=== PATIENT | male | born 1980 | race Caucasian/White ===

== ENCOUNTER 2017-02-17 12:58 | Inpatient (IN) | payer OTHER ==
--- NOTE | ~2017-02-17 | PA ---
Unit #: [id number] #: [id number] Patient: WIN HIRSCH [id number] [facility] [address] [place] [address] [id number] I MR#: [id number] NAME: WIN HIRSCH. ROOM: [facility] Age: 36 Sex: M Admission Date: 02/17/2017 : 1980 Date of Assessment: Attending Physician: Rayshawn Kim M.D. Admitting Physician: Rayshawn Kim M.D. PSYCHIATRIC ASSESSMENT INFORMANTS The patient reliability, fair informant and chart reliability, good. CHIEF COMPLAINT Suicidal ideation. HISTORY OF PRESENT ILLNESS Win Hirsch is a 36-year-old male, seen on 02/17/2017, on . The patient presented with suicidal ideation with plan and intent. The patient reported feeling sad and depressed, also reported homeless, on probation, and intents to kill himself by stabbing himself. The patient also reported starting into withdrawals from heroin, used one pint yesterday. The patient denied any homicidal ideation. The patient reported history of hepatitis C. the patient reported tobacco use, age of onset 17; crack cocaine, age of onset 36; opioid, age of onset 36; and amphetamine, age of onset 36. The patient reported longest period of sobriety 2 years, last period of sobriety was in 10/2016. The patient reported history of blackout, history of hepatitis, withdrawal symptom, and history of IV drug use. Currently, reporting muscle cramping, irritability, restlessness, sleep problem, abdominal cramping, muscle cramping, irritability, and tremors. The patient needing inpatient admission at this time for psychiatric stabilization. PAST PSYCHIATRIC HISTORY Remarkable for history of inpatient treatment at [facility] mental health. No history of any suicide attempt or any inpatient treatment. FAMILY HISTORY AND SOCIAL HISTORY The patient currently homeless, poor support system. No history of any abuse. The patient reported legal charges, but no court date. Reported past charges of burglary in second-degree. MEDICAL HISTORY Remarkable for history of hepatitis C. Musculoskeletal; muscle strength and tone, no atrophy or abnormal movement. Gait normal. MEDICATION HISTORY The patient is on gabapentin 800 mg b.i.d., Risperdal 2 mg b.i.d., Cymbalta 60 mg daily, and Artane 2 mg b.i.d. ALLERGIES No known drug allergies. Unit #: [id number] #: [id number] Patient: WIN HIRSCH SUBSTANCE ABUSE HISTORY Please see above. REVIEW OF SYSTEMS HEENT: Eyes, clear. Ears, nose, mouth, and throat; clear. CARDIOVASCULAR: Unremarkable. RESPIRATORY: Unremarkable. GI: Unremarkable. : Unremarkable. SKIN: Unremarkable. LYMPH NODE: Unremarkable. NEUROLOGIC: Unremarkable. ENDOCRINE: Unremarkable. HEMATOLOGIC: Unremarkable. ALLERGIC/IMMUNOLOGIC: Unremarkable. MUSCULOSKELETAL: Muscle strength and tone, no atrophy or abnormal movement. Gait normal. MENTAL STATUS EXAMINATION CONSTITUTIONAL: Measurement of vital signs; temperature 97.9, pulse rate 75, respiratory rate 16, blood pressure 103/60, height 5 feet 11 inches, and weight 200 pounds. GENERAL APPEARANCE: The patient dressed casually. The patient did not show any facial deformity. MUSCULOSKELETAL: Please see above. PSYCHIATRIC EXAMINATION Description of speech, regular rate. Description of thought process, goal directed. Description of association, intact. Description of abnormal psychotic thinking; the patient denied any hallucinations or delusions, but mood lability and substance abuse. Denied any homicidal ideation, but suicidal ideation as mentioned above. Description of the patient's judgment: Concerning everyday activity, poor. Social situation, poor. Concerning psychiatric condition, poor. Complete mental status examination; oriented in time, place, and person. Recent and remote memory, fair. Attention span and concentration, fair. Language, able to name object and repeat phrases. Fund of knowledge, aware of current event and passive vocabulary intact. Mood and affect, sad and dysphoric. Insight and judgment were fair to slightly impaired. ASSETS AND LIABILITIES Assets, the patient is articulate and able to take care of his ADL. Liability, history of substance abuse and depression. ADMITTING DIAGNOSES Psychiatric: Mood disorder, not otherwise specified, F32.9; bipolar mood disorder, not otherwise specified; F31.89; and amphetamine use disorder, severe, F15.20. Secondary diagnosis: Deferred. Medical diagnosis: Hepatitis C. Stressors: Psychosocial stressors. PSYCHIATRIC PLAN AND TREATMENT GOAL AND DISCHARGE PLAN 1. Advised to admit the patient on the inpatient unit. Provide safe, Unit #: [id number] #: [id number] Patient: WIN HIRSCH supportive, and structured environment. 2. Ordered labs; CBC, CMP, UA, and UDS. 3. Advised to continue with current medication; Artane, Risperdal, Neurontin, and lithium. Plan to check lithium level. The patient to start on detox protocol and detox monitoring. SC1 precaution. 4. The patient to attend all the programing on the inpatient unit, group therapy, individual therapy, and medication management. TREATMENT GOAL To attain euthymic mood, gain insight into his problem, and learn coping skills. DISCHARGE PLAN Plan to stabilize the patient and consider followup in outpatient program. ESTIMATED LENGTH OF STAY 5 days. Dictated by... Rayshawn Kim M.D. IKE/porter TD: 02/18/2017 17:56 JOB #: [id number] PSYCHIATRIC ASSESSMENT Page 1 of 1 X Rayshawn Kim MD PSYCHIATRIC ASSESSMENT
--- NOTE | ~2017-02-17 | HP ---
Unit #: [id number] #: [id number] Patient: WIN HIRSCH [id number] [place] [address] [id number] I MR#: [id number] NAME: WIN HIRSCH. ROOM: [facility] Age: 36 Sex: M Admission Date: 02/17/2017 : 1980 Attending Physician: Rayshawn Kim M.D. Admitting Physician: Rayshawn Kim M.D. Primary Care Physician: Generic Doctor Not In System HISTORY AND PHYSICAL HISTORY OF PRESENT ILLNESS Win is a 36 year old admitted to [facility] because of his polysubstance abuse which includes IV heroin and meth. PAST MEDICAL HISTORY 1. Long history of poly-illicit substance abuse to include IV drugs. 2. Asthma. PAST SURGICAL HISTORY Nothing reported. ALLERGIES Sulfa. SOCIAL HISTORY Smokes 1 pack per day. Denies alcohol but admits to a long history of poly-illicit substance abuse to include IV drugs. FAMILY HISTORY Medically noncontributory. REVIEW OF SYSTEMS CONSTITUTIONAL: No fever or chills. HEENT: Denies any sore throat, ear pain or runny nose. CARDIOVASCULAR: Denies chest pain, irregular heart rhythm or palpitations. CHEST: Denies shortness of breath or cough. No hemoptysis. GASTROINTESTINAL: Denies nausea, vomiting, diarrhea or chronic constipation. ENDOCRINE: Denies history of increased thirst or urination. No recent significant weight loss or gain. GENITOURINARY: Denies dysuria, frequency, or hematuria. SKIN: Denies any rashes. HEMATOLOGIC: Denies history of increased bleeding or bruising. MUSCULOSKELETAL: Denies any hot, swollen joints. No generalized muscle pain. NEUROLOGIC: Denies problems with vision or speech. No frequent, severe headaches. No numbness, tingling or weakness in any extremities. Denies loss of bladder or bowel control. CURRENT MEDICATIONS 1. Detox protocol. 2. Artane 2 mg b.i.d. 3. Risperdal 1 mg b.i.d. Unit #: [id number] #: [id number] Patient: WIN HIRSCH 4. Neurontin 800 mg b.i.d. 5. Borger 300 mg b.i.d. PHYSICAL EXAMINATION GENERAL: Alert, well-nourished, in no apparent distress. VITAL SIGNS: Blood pressure 115/56, heart rate 84, respirations 16, temperature 98.6. WEIGHT: 200. HEIGHT: 5 feet 11 inches. SKIN: Warm and dry without rash or lesion. HEENT: Normocephalic. TMs not viewed. Oral and nasal passages clear. Conjunctivae clear. PERRLA. EOMs intact. NECK: Supple without lymphadenopathy or thyromegaly. HEART: Regular rate and rhythm without murmur. LUNGS: Clear. ABDOMEN: Soft, nontender. : Not done. EXTREMITIES: No evidence of cyanosis, clubbing or edema. Moves all without focal deficit. NEUROLOGICAL: Grossly within normal limits. Cranial Nerves: II: Visual jones are intact. III, IV AND : Extraocular movements are intact. Pupils are equal, round and reactive to light. V: Facial sensation is grossly normal. VII: Facial movements and expression are normal. VIII: Auditory acuity grossly intact. IX, X: Uvula is midline. Phonation is normal. XI: Patient shrugs shoulders and turns head normally. XII: Tongue protrudes in the midline. Sensory and Motor Function: Sensory and motor sensation is grossly normal. Motor: moves all extremities well. Coordination: Gait is normal. Deep Tendon Reflexes: Intact. IMPRESSION Psychiatric admission. RECOMMENDATIONS PSYCHIATRIC: Per psychiatrist. MEDICAL: 1. See no contraindications to participate in facility's activities. 2. Will add Albuterol inhaler 2 puffs q. 4 hours p.r.n. SOB. MEDICAL PROGNOSIS Good. MEDICAL CONDITION Stable. Dictated by... Kayla Acosta P.A.-C. for Woo Lama/kerline TD: 02/17/2017 17:49 JOB #: [id number] Unit #: [id number] #: [id number] Patient: WIN HIRSCH HISTORY AND PHYSICAL Page 1 of 1 X Kayla Acosta HISTORY AND PHYSICAL
--- NOTE | ~2017-02-17 | PN ---
Unit #: [id number] #: [id number] Patient: WIN HIRSCH [id number] [facility] [address] [place] [address] [id number] I MR#: [id number] NAME: WIN HIRSCH. ROOM: [facility] Age: 36 Sex: M Admission Date: 02/17/2017 : 1980 Attending Physician: Rayshawn Kim M.D. Admitting Physician: Rayshawn Kim M.D. Primary Care Physician: Generic Doctor Not In System [facility] PROGRESS NOTES DATE OF SERVICE 02/21/2017 DISCUSSION Win Hirsch is a 36-year-old male seen on 02/21/2017. The patient interviewed, chart reviewed. Obtained information from nursing staff. The patient was compliant, cooperative. Mood sad, dysphoric, flat affect. Able to maintain safe behavior. The patient seclusive, isolative. Complete Review of Systems: Unremarkable. MENTAL STATUS EXAMINATION General Appearance: The patient dressed casually. Attention span, concentration: Fair. Oriented in place and person. Mood and affect labile. Speech: Monotone. Thought process: Helix. The patient denied any thoughts of harming self or others or any psychotic symptom. Recent and remote memory: Poor. Insight and judgment: Poor. DIAGNOSIS Mood disorder not otherwise specified. ASSESSMENT/PLAN Advised to continue with current medication and therapeutic protocol. We will monitor response to medication and make further adjustment of medication. Dictated by... Rayshawn Kim M.D. SZGypsy/mira TD: 02/23/2017 13:27 JOB #: [id number] Unit #: [id number] #: [id number] Patient: WIN HIRSCH [facility] PROGRESS NOTES Page 1 of 1 X Rayshawn Kim MD X PROGRESS NOTE
--- NOTE | ~2017-02-17 | PN ---
Unit #: [id number] #: [id number] Patient: WIN HIRSCH [id number] [facility] [address] [place] [address] [id number] I MR#: [id number] NAME: WIN HIRSCH. ROOM: [facility] Age: 36 Sex: M Admission Date: 02/17/2017 : 1980 Attending Physician: Rayshawn Kim M.D. Admitting Physician: Rayshawn Kim M.D. Primary Care Physician: Generic Doctor Not In System [facility] PROGRESS NOTES DATE 02/18/2017 DISCUSSION Win Hirsch is a 36-year-old, male seen on 02/18/2017. The patient interviewed, chart reviewed. Obtained information from nursing staff. The patient was compliant and cooperative. Mood sad, dysphoric, flat affect, withdrawn, isolative. The patient's labs reviewed that showed RPR nonreactive. Urine drug screen negative. UA unremarkable. CMP remarkable for ALT 61, Alkaline phosphatase was 106. The patient's thyroid function within normal range. CHIEF OF INTERNAL MEDICINE with differential unremarkable. Complete review of systems unremarkable. MENTAL STATUS EXAMINATION General appearance, the patient dressed casually. Attention span and concentration fair. Oriented to place and person. Mood and affect labile. Speech monotone. Thought process circumstantial. The patient denied any thoughts of harming self or others but guarded. Able to contract for safety. Still withdrawn. Sad, dysphoric, seclusive. Recent and remote memory poor. Insight and judgement poor. The patient still having withdrawal symptoms as mentioned above. ASSESSMENT/PLAN Advise to continue with current medication and therapeutic protocol. If needed consider further adjustment of medication. Dictated by... Woo Prieto/shani TD: 02/19/2017 21:54 JOB #: [id number] Unit #: [id number] #: [id number] Patient: WIN HIRSCH PROGRESS NOTES Page 1 of 1 X Rayshawn Kim MD PROGRESS NOTE
--- NOTE | ~2017-02-17 | PN ---
Unit #: [id number] #: [id number] Patient: WIN HIRSCH [id number] [facility] [address] [place] [address] [id number] I MR#: [id number] NAME: WIN HIRSCH. ROOM: [facility] Age: 36 Sex: M Admission Date: 02/17/2017 : 1980 Attending Physician: Rayshawn Kim M.D. Admitting Physician: Woo Prieto PROGRESS NOTES DATE OF SERVICE: 02/19/2017 DISCUSSION Win Hirsch is a 36-year-old male, seen on 02/19/2017. The patient interviewed, chart reviewed, and obtained information from nursing staff. The patient reported still feeling sad, depressed, withdrawn, isolative, suicidal ideation. Vital signs; temperature 98.4, pulse 70, and blood pressure 103/50. Complete review of systems unremarkable. MENTAL STATUS EXAMINATION General appearance, the patient dressed casually. Attention span and concentration, fair. Oriented in place and person. Mood and affect; sad, depressed. Speech, monotone. Thought process, goal directed. The patient denied any thoughts of harming self or others or any psychotic symptom. Recent and remote memory, poor. Insight and judgment, poor. DIAGNOSES 1. Mood disorder, not otherwise specified. 2. Rule out bipolar mood disorder. 3. Amphetamine use disorder, severe. ASSESSMENT AND PLAN Advised to start the patient on Celexa 20 mg daily. If needed, consider further adjustment of medication. Continue with the inpatient programing. Dictated by... Woo Prieto/porter TD: 02/19/2017 13:51 JOB #: [id number] Unit #: [id number] #: [id number] Patient: WIN HIRSCH PROGRESS NOTES Page 1 of 1 X Rayshawn Kim MD X PROGRESS NOTE
--- NOTE | ~2017-02-17 | DS ---
Unit #: [id number] #: [id number] Patient: WIN HIRSCH [id number] [facility] [address] [place] [address] [id number] I MR#: [id number] NAME: WIN HIRSCH. ROOM: [facility] Age: 36 Sex: M Admission Date: 02/17/2017 : 1980 Discharge Date: 02/22/2017 Attending Physician: Rayshawn Kim M.D. Primary Care Physician: Generic Doctor Not In System DISCHARGE SUMMARY REASON FOR ADMISSION Suicidal ideation. DIAGNOSTIC STUDIES LABORATORY RESULTS: Unremarkable. HOSPITAL COURSE The patient was admitted to inpatient unit on 02/17/2017 and discharged on 02/22/2017. The patient was treated on the inpatient unit with group therapy, individual therapy, medication management, chemical dependency group. The patient responded well with the above modalities of treatment. Subsequently, the patient was discharged with a plan to follow up in outpatient program. DISCHARGE MEDICATIONS Neurontin 800 mg t.i.d. for mood stabilization, Artane 2 mg b.i.d. for EPS symptom, Risperdal 1 mg b.i.d. for psychosis, lithium carbonate 300 mg b.i.d. for mood stabilization. DISCHARGE DIAGNOSES Psychiatric: 1. Bipolar mood disorder, not otherwise specified, F31.89. 2. Amphetamine use disorder, severe, F15.20. Secondary diagnosis: Deferred. Medical diagnosis: Hepatitis C. Stressors: Psychosocial stressor. DISCHARGE INSTRUCTIONS The patient to follow up in outpatient clinic as per perinatal social worker. CONDITION ON DISCHARGE The patient was pleasant and cooperative. Denied any psychotic symptom or any suicidal ideation. PROGNOSIS Guarded. DIET AND ACTIVITY As tolerated. Unit #: [id number] #: [id number] Patient: WIN HIRSCH Dictated by... Rayshawn Kim M.D. SZC/ronniel TD: 02/23/2017 08:11 JOB #: [id number] DISCHARGE SUMMARY Page 1 of 1 X Rayshawn Kim MD X DISCHARGE SUMMARY
--- NOTE | ~2017-02-17 | CO ---
Unit #: [id number] #: [id number] Patient: WIN HIRSCH [id number] [facility] [address] [place] [address] [id number] I MR#: [id number] NAME: WIN HIRSCH. ROOM: [facility] Age: 36 Sex: M Admission Date: 02/17/2017 : 1980 Attending Physician: Rayshawn Kim M.D. Primary Care Physician: Generic Doctor Not In System Consultation Date: 02/20/2017 CONSULTATION REPORT ORDERING PROVIDER Dr. Kim. REASON FOR CONSULTATION Back pain. SUBJECTIVE The patient reports that he has had lower back pain, pain with urination, and difficulty urinating for about 2 days. He also complains of allergies and would like medication for it. OBJECTIVE Urinalysis from 02/17/2017 is normal, however, symptoms started after the urinalysis was drawn according to the patient. His examination at this time is unremarkable. ASSESSMENT Possible urinary tract infection. PLAN Plan is to get urinalysis and start the patient on allergy medicines as requested. We will follow up after urinalysis results. Dictated by... Ruth Hairston/porter TD: 02/20/2017 20:50 JOB #: [id number] CONSULTATION REPORT Page 1 of 1 X MARGO SAUCEDO APRN CONSULTATION REPORT
--- NOTE | ~2017-02-17 | PN ---
Unit #: [id number] #: [id number] Patient: WIN HIRSCH [id number] [facility] [address] [place] [address] [id number] I MR#: [id number] NAME: WIN HIRSCH. ROOM: [facility] Age: 36 Sex: M Admission Date: 02/17/2017 : 1980 Attending Physician: Rayshawn Kim M.D. Admitting Physician: Rayshawn Kim M.D. Primary Care Physician: Generic Doctor Not In System [facility] PROGRESS NOTES DATE OF SERVICE: 02/20/2017 DISCUSSION Win Hirsch is a 36-year-old male, seen on 02/20/2017. The patient interviewed, chart reviewed, and obtained information from nursing staff. The patient was compliant and cooperative, denied any thoughts of harming self or others, but seclusive, isolative, guarded. The patient's vital signs; temperature 98.4, pulse 60, and blood pressure 99/57. The patient continues to be isolative, guarded. No side effects from medication. Complete review of systems unremarkable. MENTAL STATUS EXAMINATION General appearance, the patient dressed casually. Attention span and concentration, fair. Oriented in place and person. Mood and affect, sad and dysphoric. Speech, monotone. Thought process, concrete. The patient denied any thoughts of harming self or others or any psychotic symptom. Recent and remote memory, poor. Insight and judgment, poor. DIAGNOSES 1. Mood disorder, not otherwise specified. 2. Amphetamine use disorder, severe. 3. Opioid use disorder, severe. ASSESSMENT AND PLAN Advised to continue with current medication and therapeutic protocol. We will monitor response to medication and make further adjustment of medication. Dictated by... Woo Prieto/porter TD: 02/21/2017 20:25 JOB #: [id number] Unit #: [id number] #: [id number] Patient: WIN HIRSCH PROGRESS NOTES Page 1 of 1 X Rayshawn Kim MD PROGRESS NOTE
[2017-02-18 09:28] LABS: BASOPHIL# 0.1 X10e3 (0-0.3); BASOPHIL% 0.9 % (0-2.5); EOSINOPHIL# 0.2 X10e3 (0-0.7); EOSINOPHIL% 2.7 % (0.0-7.0); HEMATOCRIT 42.9 % (38.0-50.0); HEMOGLOBIN 14.1 gm/dL (13.0-16.0); LYMPHOCYTE# 2.1 X10e3 (1.0-3.5); LYMPHOCYTE% 34.5 % (17.0-45.0); MEAN CELL VOLUME 93.5 FL (83-96); MEAN CORPUSCULAR HEMOGLOBIN 30.8 PG (28-34); MEAN CORPUSCULAR HGB CONC 32.9 g/dL (30-36); MEAN PLATELET VOLUME 8.1 FL (6.5-11.5); MONOCYTE# 0.6 X10e3 (0-1.0); MONOCYTE% 9.3 % (3.0-12.0); NEUTROPHIL# 3.1 X10e3 (1.5-7.1); NEUTROPHIL% 52.6 % (40-75); PLATELET COUNT 238 X10e3 (140-420); RED BLOOD COUNT 4.58 X10e (3.90-5.60); RED CELL DISTRIBUTION WIDTH 14.2 % (11.0-15.5); WHITE BLOOD COUNT 5.9 X10e3 (4.0-10.5)
[2017-02-18 09:31] LABS: DIFF IND NO
[2017-02-18 09:44] LABS: URINE APPEARANCE TURBID; URINE BILIRUBIN NEG (NEG); URINE BLOOD NEG (NEG); URINE COLOR DK YELLOW; URINE GLUCOSE NEG (NEG); URINE KETONE NEG (NEG); URINE LEUKOCYTE ESTERASE NEG (NEG); URINE NITRATE NEG (NEG); URINE PH 5.5 (5-8); URINE PROTEIN NEG (NEG); URINE SPECIFIC GRAVITY 1.033 (1.003-1.035)
[2017-02-18 09:47] LABS: THYROID STIMULATING HORMONE 0.59 uIU/ml (0.34-5.60)
[2017-02-18 09:56] LABS: ALBUMIN SERUM 3.6 g/dL (3.5-5.0); BILIRUBIN,TOTAL 1.3 mg/dL (0.2-2.0); CALCIUM SERUM 8.7 mg/dL (8.4-10.2); CREATININE SERUM 0.7 mg/dL (0.6-1.4); FREE THYROXIN (T4) 1.1 ng/dL (0.58-1.64); GLOM FILT RATE Estimated 123.2 mL/min (>60); POTASSIUM 4.2 mmol/L (3.5-5.1); PROTEIN TOTAL SERUM 5.9 g/dL (6.0-8.3)
[2017-02-18 10:40] LABS: AMPHETAMINE NEG (NEG); BARBITURATES NEG (NEG); BENZODIAZEPINES NEG (NEG); COCAINE NEG (NEG); MARIJUANA NEG (NEG); OPIATES NEG (NEG); TRICYCLIC ANTIDEPRESSANTS NEG (NEG); U METHADONE NEG (NEG)
[2017-02-21 12:24] LABS: URINE APPEARANCE CLEAR; URINE BILIRUBIN NEG (NEG); URINE BLOOD NEG (NEG); URINE COLOR YELLOW; URINE GLUCOSE NEG (NEG); URINE KETONE NEG (NEG); URINE LEUKOCYTE ESTERASE NEG (NEG); URINE NITRATE NEG (NEG); URINE PH 6.5 (5-8); URINE PROTEIN NEG (NEG); URINE UROBILINOGEN 0.2 MG/DL (NEG)
== END 2017-02-22 10:00 | DRG 885 ==
LOC: P1E 12:58
PROVIDERS: Psychiatry & Neurology Psychiatry
DX: F39 Unspecified mood [affective] disorder (principal); F15.20 Other stimulant dependence, uncomplicated; N39.0 Urinary tract infection, site not specified; F31.89 Other bipolar disorder; B19.20 Unspecified viral hepatitis C without hepatic coma; J45.909 Unspecified asthma, uncomplicated; Z88.2 Allergy status to sulfonamides
CPT/HCPCS: 80053; 80307; 81003; 84439; 84443; 85025; 86592

== ENCOUNTER 2017-03-01 12:52 | Inpatient (IN) | payer OTHER ==
--- NOTE | ~2017-03-01 | PN ---
Unit #: [id number] #: [id number] Patient: WIN HIRSCH [id number] [facility] [address] [place] [address] [id number] I MR#: [id number] NAME: WIN HIRSCH. ROOM: [facility] Age: 36 Sex: M Admission Date: 03/01/2017 : 1980 Attending Physician: Rayshawn Kim M.D. Admitting Physician: Woo Prieto PROGRESS NOTES DATE 03/02/2017 DISCUSSION Win Hirsch is a 36-year-old male seen on 03/02/2017. The patient interviewed, chart reviewed. Obtained information from nursing staff. The patient was compliant and cooperative. Mood sad, dysphoric, flat affect, guarded. The patient still reporting having cravings, mood lability, sad depressed mood, flat affect. Vital signs 97.5, 110, 117/76. Complete review of systems unremarkable. MENTAL STATUS EXAMINATION General appearance, the patient dressed casually. Attention span and concentration fair. Oriented to place and person. Mood and affect sad, dysphoric. Speech monotone. Thought process concrete. The patient still having passive SI but denied any thoughts of harming others, guarded, paranoid, flat affect. Mood sad, dysphoric. insight and judgement fair to poor. DIAGNOSES Mood disorder NOS Bipolar mood disorder NOS Amphetamine abuse ASSESSMENT/PLAN Advise to continue with current medication and therapeutic protocol. We will monitor response to medication and make further adjustment of medication. Dictated by... Woo Prieto/shani TD: 03/03/2017 03:15 JOB #: [id number] Unit #: [id number] #: [id number] Patient: WIN HIRSCH PROGRESS NOTES Page 1 of 1 X Rayshawn Kim MD PROGRESS NOTE
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
--- NOTE | ~2017-03-01 | DS ---
Unit #: [id number] #: [id number] Patient: WIN HIRSCH [id number] [facility] [address] [place] [address] [id number] I MR#: [id number] NAME: WIN HIRSCH. ROOM: [facility] Age: 36 Sex: M Admission Date: 03/01/2017 : 1980 Discharge Date: 03/03/2017 Attending Physician: Rayshawn Kim M.D. DISCHARGE SUMMARY REASON FOR ADMISSION Suicidal ideation and detox. DIAGNOSTIC STUDIES LABORATORY RESULTS: Urine drug screen positive for benzodiazepines. HOSPITAL COURSE The patient was admitted to inpatient unit on 03/01/2017 and discharged on 03/03/2017. The patient was treated with chemical dependency group, structured milieu, psychoeducation, and psychotherapy. The patient responded well with the above modalities of treatment and the patient requested to be discharged. The patient at this time is not suicidal, homicidal, or any psychotic symptom. Subsequently, the patient was discharged with a plan to follow up in outpatient program. DISCHARGE MEDICATIONS Artane 2 mg b.i.d. for EPS symptom, Risperdal 1 mg b.i.d. for mood stabilization, Claritin 10 mg daily for allergies, Celexa 20 mg daily for mood stabilization, and Neurontin 800 mg t.i.d. for anxiety. DISCHARGE DIAGNOSES Psychiatric: 1. Mood disorder, not otherwise specified, F32.9. 2. Bipolar mood disorder, not otherwise specified, F31.89. 3. Amphetamine use disorder, severe, F15.20. Secondary diagnosis: Deferred. Medical diagnosis: Hepatitis C. Stressors: Psychosocial stressors. DISCHARGE INSTRUCTIONS The patient is to follow up in outpatient program as per rn social services. CONDITION ON DISCHARGE The patient was pleasant and cooperative. Denied any psychotic symptom or any suicidal ideation. PROGNOSIS Guarded. DIET AND ACTIVITY As tolerated. Unit #: [id number] #: [id number] Patient: WIN HIRSCH Dictated by... Rayshawn Kim M.D. SZC/ronniel TD: 03/03/2017 21:05 JOB #: [id number] DISCHARGE SUMMARY Page 1 of 1 X Rayshawn Kim MD DISCHARGE SUMMARY
--- NOTE | ~2017-03-01 | HP ---
Unit #: [id number] #: [id number] Patient: WIN HIRSCH [id number] [facility] [address] [place] [address] [id number] I MR#: [id number] NAME: WIN HIRSCH. ROOM: P208 Age: 36 Sex: M Admission Date: 03/01/2017 : 1980 Attending Physician: Rayshawn Kim M.D. Admitting Physician: Rayshawn Kim M.D. HISTORY AND PHYSICAL Win is a 36 year old admitted to [address] [place] [address] because of his continued substance abuse. He was just discharged from this facility. Patient was seen and H and P dated 02/17/17 was reviewed. This is current. No changes. Please see H and P dated 02/17/17. Dictated by... Kayla Acosta P.A.-C. for Woo Lama/kerline TD: 03/01/2017 19:39 JOB #: [id number] HISTORY AND PHYSICAL Page 1 of 1 X Kayla Acosta HISTORY AND PHYSICAL
[2017-03-02 09:36] LABS: BASOPHIL% 0.7 % (0-2.5); EOSINOPHIL# 0.3 X10e3 (0-0.7); EOSINOPHIL% 4.2 % (0.0-7.0); HEMATOCRIT 45.4 % (38.0-50.0); HEMOGLOBIN 15.1 gm/dL (13.0-16.0); LYMPHOCYTE# 1.8 X10e3 (1.0-3.5); LYMPHOCYTE% 26.9 % (17.0-45.0); MEAN CELL VOLUME 92.8 FL (83-96); MEAN CORPUSCULAR HEMOGLOBIN 30.8 PG (28-34); MEAN CORPUSCULAR HGB CONC 33.2 g/dL (30-36); MEAN PLATELET VOLUME 7.9 FL (6.5-11.5); MONOCYTE# 0.7 X10e3 (0-1.0); MONOCYTE% 9.7 % (3.0-12.0); NEUTROPHIL% 58.5 % (40-75); PLATELET COUNT 226 X10e3 (140-420); RED BLOOD COUNT 4.89 X10e (3.90-5.60); RED CELL DISTRIBUTION WIDTH 14.4 % (11.0-15.5); WHITE BLOOD COUNT 6.9 X10e3 (4.0-10.5)
[2017-03-02 09:37] LABS: DIFF IND NO
[2017-03-02 10:16] LABS: ALBUMIN SERUM 3.4 g/dL (3.5-5.0); BILIRUBIN,TOTAL 0.8 mg/dL (0.2-2.0); BUN/CREATININE RATIO 21.66; CALCIUM SERUM 8.9 mg/dL (8.4-10.2); CREATININE SERUM 0.6 mg/dL (0.6-1.4); GLOM FILT RATE Estimated 131.2 mL/min (>60); POTASSIUM 4.5 mmol/L (3.5-5.1); PROTEIN TOTAL SERUM 6.1 g/dL (6.0-8.3)
[2017-03-03 09:51] LABS: URINE APPEARANCE CLEAR; URINE BILIRUBIN NEG (NEG); URINE BLOOD NEG (NEG); URINE COLOR DK YELLOW; URINE GLUCOSE NEG (NEG); URINE KETONE NEG (NEG); URINE LEUKOCYTE ESTERASE NEG (NEG); URINE NITRATE NEG (NEG); URINE PH 6.5 (5-8); URINE PROTEIN NEG (NEG); URINE SPECIFIC GRAVITY 1.012 (1.003-1.035); URINE UROBILINOGEN 0.2 MG/DL (NEG)
[2017-03-03 10:16] LABS: AMPHETAMINE NEG (NEG); BARBITURATES NEG (NEG); BENZODIAZEPINES POS (NEG); COCAINE NEG (NEG); MARIJUANA NEG (NEG); OPIATES NEG (NEG); TRICYCLIC ANTIDEPRESSANTS NEG (NEG); U METHADONE NEG (NEG)
== END 2017-03-03 10:23 | DRG 885 ==
LOC: P2S 12:52
PROVIDERS: Psychiatry & Neurology Psychiatry
DX: F31.9 Bipolar disorder, unspecified (principal); F15.20 Other stimulant dependence, uncomplicated; R45.851 Suicidal ideations; B19.20 Unspecified viral hepatitis C without hepatic coma; F39 Unspecified mood [affective] disorder
CPT/HCPCS: 80053; 80307; 81003; 85025; 86592

== ENCOUNTER 2017-04-22 10:00 | Inpatient (IN) | payer OTHER ==
--- NOTE | ~2017-04-22 | HP ---
Unit #: [id number] #: [id number] Patient: WIN HIRSCH [id number] [place] [address] [id number] I MR#: [id number] NAME: WIN HIRSCH. ROOM: [facility] Age: 36 Sex: M Admission Date: 04/22/2017 : 1980 Attending Physician: Rayshawn Kim M.D. Admitting Physician: Rayshawn Kim M.D. HISTORY AND PHYSICAL HISTORY OF PRESENT ILLNESS Win is a 36-year-old male admitted on 04/22/[address] [place] [address] for detox from heroin. PAST MEDICAL HISTORY Lymphedema and exposure to hepatitis C. PAST SURGICAL HISTORY Right knee surgical repair of meniscus tear. SOCIAL HISTORY Smokes half pack of cigarettes daily. Occasional binge alcohol use. History of daily heroin and methamphetamine use. He is currently single and homeless. FAMILY HISTORY Noncontributory. REVIEW OF SYSTEMS CONSTITUTIONAL: No fever or chills. HEENT: Denies any sore throat, ear pain or runny nose. CARDIOVASCULAR: Denies chest pain, irregular heart rhythm or palpitations. CHEST: Denies shortness of breath or cough. No hemoptysis. GASTROINTESTINAL: Denies nausea, vomiting, diarrhea or chronic constipation. ENDOCRINE: Denies history of increased thirst or urination. No recent significant weight loss or gain. GENITOURINARY: Denies dysuria, frequency, or hematuria. SKIN: Denies any rashes. HEMATOLOGIC: Denies history of increased bleeding or bruising. MUSCULOSKELETAL: Denies any hot, swollen joints. No generalized muscle pain. NEUROLOGIC: Denies problems with vision or speech. No frequent, severe headaches. No numbness, tingling or weakness in any extremities. Denies loss of bladder or bowel control. CURRENT MEDICATIONS Artane, Risperdal, lithium, Celexa, Zyrtec, Flonase, Combivent, Asmanex, Ventolin, and Neurontin. ALLERGIES To sulfa drugs. PHYSICAL EXAMINATION Unit #: [id number] #: [id number] Patient: WIN HIRSCH GENERAL: Alert, oriented, no acute distress. VITAL SIGNS: Blood pressure 103/67, heart rate 83, temperature 97.9. HEIGHT: 5 feet 9. WEIGHT: 200 pounds. SKIN: Warm, dry. No rashes or lesions, track avila, cuts, etc. HEENT: Normocephalic. TMs not viewed. Oronasal passages clear. Conjunctivae clear. PERRLA. EOM is intact. NECK: No lymphadenopathy or thyromegaly. HEART: Regular rate and rhythm. No murmur, gallop, or rub. LUNGS: Clear to auscultation bilaterally. ABDOMEN: Soft, nontender without palpable masses or hepatosplenomegaly. : Not assessed. EXTREMITIES: No evidence of cyanosis, clubbing, or edema. Moves all extremities independently without obvious deficit. NEUROLOGICAL: Grossly within normal limits. Cranial Nerves: II: Visual jones are intact. III, IV AND : Extraocular movements are intact. Pupils are equal, round and reactive to light. V: Facial sensation is grossly normal. VII: Facial movements and expression are normal. VIII: Auditory acuity grossly intact. IX, X: Uvula is midline. Phonation is normal. XI: Patient shrugs shoulders and turns head normally. XII: Tongue protrudes in the midline. Sensory and Motor Function: Sensory and motor sensation is grossly normal. Motor: moves all extremities well. Coordination: Gait is normal. Deep Tendon Reflexes: Intact. IMPRESSION Psychiatric admission. RECOMMENDATIONS PSYCHIATRIC: Per psychiatrist. MEDICAL: No contraindication to participating in this facility's activities. MEDICAL PROGNOSIS Good. MEDICAL CONDITION Stable. Dictated by..Ruth Dubois TD: 04/23/2017 11:30 JOB #: [id number] Unit #: [id number] #: [id number] Patient: WIN HIRSCH HISTORY AND PHYSICAL Page 1 of 1 X RUKHSANA MONTEIRO APRN HISTORY AND PHYSICAL
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
--- NOTE | ~2017-04-22 | PN ---
Unit #: [id number] #: [id number] Patient: WIN HIRSCH [id number] [facility] [address] [place] [address] [id number] I MR#: [id number] NAME: WIN HIRSCH. ROOM: [facility] Age: 36 Sex: M Admission Date: 04/22/2017 : 1980 Attending Physician: Rayshawn Kim M.D. Admitting Physician: Woo Prieto NOTES DATE 04/25/2017 DISCUSSION Win Hirsch is a 36-year-old male seen on 04/25/2017. The patient interviewed, chart reviewed. Obtained information from nursing staff. The patient compliant and cooperative. Mood labile, sad, dysphoric anxious concern about discharge. Complete review of systems unremarkable. MENTAL STATUS EXAMINATION General appearance, the patient dressed casually. Attention span and concentration fair. Oriented to time, place and person. Mood and affect labile. Speech monotone. Thought process concrete. The patient denied any thoughts of harming self or others but guarded. Recent and remote memory poor. Insight and judgement poor. DIAGNOSES Mood disorder NOS Alcohol use disorder severe ASSESSMENT/PLAN Advise to continue with current medication and therapeutic protocol. If needed consider further adjustment of medication. Dictated by... Woo Prieto/shani TD: 04/26/2017 23:48 JOB #: [id number] [facility] NOTES Page 1 of 1 X Rayshawn Kim MD X PROGRESS NOTE
--- NOTE | ~2017-04-22 | PN ---
Unit #: [id number] #: [id number] Patient: WIN HIRSCH [id number] [facility] [address] [place] [address] [id number] I MR#: [id number] NAME: WIN HIRSCH. ROOM: [facility] Age: 36 Sex: M Admission Date: 04/22/2017 : 1980 Attending Physician: Rayshawn Kim M.D. Admitting Physician: Woo Prieto PROGRESS NOTES DATE 04/24/2017 DISCUSSION Win Hirsch is a 36-year-old male seen on 04/24/2017. The patient interviewed, chart reviewed. Obtained information from nursing staff. The patient tolerating medication fairly well. Mood sad, dysphoric, flat affect, guarded. Vital signs 98.4, 76, 108/64. The patient still reporting feeling sad, depressed, withdrawn. Complete review of systems unremarkable. MENTAL STATUS EXAMINATION General appearance, the patient dressed casually. Attention span and concentration fair. Oriented to time, place and person. Mood and affect sad, dysphoric. Speech monotone. Thought process concrete. The patient denied any thoughts of harming self or others. Recent and remote memory poor. Insight and judgement poor. DIAGNOSES Major depressive disorder recurrent severe Alcohol use disorder severe ASSESSMENT/PLAN Advise to continue with current medication and therapeutic protocol. If needed consider further adjustment of medication. Dictated by... Woo Prieto/shani TD: 04/25/2017 12:49 JOB #: [id number] Unit #: [id number] #: [id number] Patient: WIN HIRSCH PROGRESS NOTES Page 1 of 1 X Rayshawn Kim MD PROGRESS NOTE
--- NOTE | ~2017-04-22 | PN ---
Unit #: [id number] #: [id number] Patient: WIN HIRSCH [id number] [facility] [address] [place] [address] [id number] I MR#: [id number] NAME: WIN HIRSCH. ROOM: [facility] Age: 36 Sex: M Admission Date: 04/22/2017 : 1980 Attending Physician: Rayshawn Kim M.D. Admitting Physician: Woo Prieto PROGRESS NOTES DATE OF SERVICE: 04/23/2017 DISCUSSION Win Hirsch is a 36-year-old male, seen on 04/23/2017. The patient interviewed, chart reviewed, and obtained information from nursing staff. The patient is compliant, cooperative. Mood is sad and dysphoric, flat affect, guarded. Maintained safe behavior. Withdrawn, isolative, flat. REVIEW OF SYSTEMS Complete review of systems unremarkable. MENTAL STATUS EXAMINATION General appearance, the patient dressed casually. Attention span and concentration, fair. Oriented in time, place, and person. Mood and affect, sad and dysphoric. Speech, monotone. Thought process, concrete. The patient denied any thoughts of harming self or others. Recent and remote memory, poor. Insight and judgment, poor. DIAGNOSES 1. Mood disorder, not otherwise specified. 2. Alcohol use disorder, moderate to severe. ASSESSMENT AND PLAN Advised to continue with current medication and therapeutic protocol. If needed, consider further adjustment of medication. Dictated by... Woo Prieto/porter TD: 04/24/2017 18:53 JOB #: [id number] Unit #: [id number] #: [id number] Patient: WIN HIRSCHDEANDRE PROGRESS NOTES Page 1 of 1 X Rayshawn Kim MD PROGRESS NOTE
--- NOTE | ~2017-04-22 | DS ---
Unit #: [id number] #: [id number] Patient: WIN HIRSCH [id number] [place] [address] [id number] I MR#: [id number] NAME: WIN HIRSCH. ROOM: [facility] Age: 36 Sex: M Admission Date: 04/22/2017 : 1980 Discharge Date: 04/26/2017 Attending Physician: Rayshawn Kim M.D. DISCHARGE SUMMARY REASON FOR ADMISSION Suicidal ideation, detox. DIAGNOSTIC STUDIES LABORATORY RESULTS: Remarkable for BUN 7, creatinine 0.5. HOSPITAL COURSE The patient was admitted to inpatient unit on 04/22/2017 and discharged on 04/26/2017. The patient was treated on the inpatient unit with group therapy, individual therapy, medication management, chemical dependency group. The patient responded well with the above modalities of treatment and discharged on following medication. DISCHARGE MEDICATIONS Risperdal 1 mg b.i.d. for mood stabilization, Celexa 20 mg daily for depression, Claritin 10 mg daily for allergies, Neurontin 800 mg t.i.d. for anxiety and mood stabilization, lithium carbonate 300 mg b.i.d. for mood stabilization, Artane 5 mg b.i.d. for EPS symptom, Librium 25 mg b.i.d. for anxiety and withdrawal symptoms for 5 days only. DISCHARGE DIAGNOSES Psychiatric: Major depressive disorder, recurrent, severe, F33.2; alcohol use disorder, severe, F10.20. Secondary diagnosis: Deferred. Medical diagnosis: None. Stressors: Psychosocial stressors. DISCHARGE INSTRUCTIONS The patient to follow up in outpatient clinic as per pediatric social worker. CONDITION ON DISCHARGE The patient was pleasant and cooperative. Denied any psychotic symptom or any suicidal ideation. PROGNOSIS Guarded. DIET AND ACTIVITY As tolerated. Unit #: [id number] #: [id number] Patient: WIN HIRSCH Dictated by... Woo Prieto/ronniel TD: 04/26/2017 22:46 JOB #: [id number] DISCHARGE SUMMARY Page 1 of 1 X Rayshawn Kim MD X DISCHARGE SUMMARY
--- NOTE | ~2017-04-22 | PA ---
Unit #: [id number] #: [id number] Patient: WIN HIRSCH [id number] [facility] [address] [place] [address] [id number] I MR#: [id number] NAME: WIN HIRSCH. ROOM: [facility] Age: 36 Sex: M Admission Date: 04/22/2017 : 1980 Date of Assessment: Attending Physician: Rayshawn Kim M.D. Admitting Physician: Rayshawn Kim M.D. PSYCHIATRIC ASSESSMENT INFORMANT The patient reliability, fair; chart reliability, good. CHIEF COMPLAINT Suicidal ideation and detox. HISTORY OF PRESENT ILLNESS Mr. Win Hirsch is a 36-year-old male, presented with the above-mentioned complaint. The patient reported having suicidal thoughts of wanting a detox. The patient reported using meth about a gram in the last 2 weeks. The patient reported drinking about one-fifth of vodka every day. The patient reported shaking, hurting all over and difficulty sleep. The patient reported seizure 6 months ago. The patient reported currently homeless. The patient denied any homicidal ideation or any psychotic symptom. The patient has a history of previous treatment at [facility], [facility], and [place], [place]. History of tobacco use, age of onset 17; alcohol, age of onset 17; crack cocaine, age of onset 36; opioid, age of onset 36; amphetamine, age of onset 36. The patient reported history of IV drug use, history of hepatitis, blackouts, history of withdrawal symptom, abdominal cramping, muscle cramping, irritability, sleep problem, tremor, depressed moods, needing inpatient admission at this time for psychiatric stabilization. PAST PSYCHIATRIC HISTORY Remarkable for history of previous treatment. The inpatient treatment at [facility] and other facilities. Details unknown at this time. FAMILY HISTORY AND SOCIAL HISTORY The patient has a poor support system. No history of any abuse. MEDICAL HISTORY Unremarkable for any chronic medical condition. Musculoskeletal; muscle strength and tone, no atrophy or abnormal movement. Gait normal. MEDICATION HISTORY None. ALLERGIES No known drug allergies. SUBSTANCE ABUSE HISTORY Please see above. Unit #: [id number] #: [id number] Patient: WIN HIRSCH REVIEW OF SYSTEMS HEENT: Eyes, clear. Ears, nose, mouth, and throat; clear. CARDIOVASCULAR: Unremarkable. RESPIRATORY: Unremarkable. GI: Unremarkable. : Unremarkable. SKIN: Unremarkable. LYMPH NODE: Unremarkable. NEUROLOGIC: Unremarkable. ENDOCRINE: Unremarkable. HEMATOLOGIC: Unremarkable. ALLERGIC/IMMUNOLOGIC: Unremarkable. MUSCULOSKELETAL: Muscle strength and tone, no atrophy or abnormal movement. Gait normal except as mentioned above. MENTAL STATUS EXAMINATION CONSTITUTIONAL: Measurement of vital signs; temperature 98.1, pulse 76, respirations 17, and blood pressure 106/63, height 5 feet 9 inches, weight 200 pounds. GENERAL APPEARANCE: The patient dressed casually. The patient did not show any facial deformity. MUSCULOSKELETAL: Please see above. General appearance, speech, regular rate. Description of thought process, goal directed. Description of association, intact. Description of abnormal psychotic thinking, the patient denied any hallucination or delusions, but mood lability, substance abuse. Description of the patient's judgment, concerning everyday activity, poor. Social situation, poor. Concerning psychiatric condition, poor. Complete mental status examination, oriented in time, place, and person. Recent and remote memory, fair. Attention span and concentration, fair. Language, intact. Fund of knowledge, fair. Vocabulary, fair. Mood and affect, sad and dysphoric. Insight and judgment, fair to poor. ASSETS AND LIABILITIES Assets; the patient is articulate, able to take care of his ADL. Liability; history of substance abuse and depression. ADMITTING DIAGNOSES Psychiatric: Major depressive disorder, recurrent, severe, F33.2; alcohol use disorder, severe, F10.20. Secondary diagnosis: Deferred. Medical diagnosis: None. Stressors: Psychosocial stressors. PSYCHIATRIC PLAN AND TREATMENT GOAL AND DISCHARGE PLAN 1. Advised to admit the patient on the inpatient unit. Provide safe, supportive, and structured environment. 2. Ordered labs; CBC, CMP, UA, and UDS. 3. Detox protocol, detox monitoring, SC1 precaution. 4. If needed, consider medication such as SSRI. 5. Treatment goal; to attain euthymic mood, gain insight into his problem, and learn coping skills. 6. Discharge plan; plan to stabilize the patient and consider followup in Unit #: [id number] #: [id number] Patient: WIN HIRSCH outpatient program. ESTIMATED LENGTH OF STAY 3 to 5 days. Dictated by... Rayshawn Kim M.D. IKE/porter TD: 04/23/2017 17:49 JOB #: [id number] PSYCHIATRIC ASSESSMENT Page 1 of 1 X Rayshawn Kim MD PSYCHIATRIC ASSESSMENT
[2017-04-23 11:32] LABS: BASOPHIL% 0.5 % (0-2.5); EOSINOPHIL# 0.1 X10e3 (0-0.7); EOSINOPHIL% 1.3 % (0.0-7.0); HEMATOCRIT 45.8 % (38.0-50.0); HEMOGLOBIN 15.1 gm/dL (13.0-16.0); LYMPHOCYTE# 1.5 X10e3 (1.0-3.5); MEAN CELL VOLUME 93.4 FL (83-96); MEAN CORPUSCULAR HEMOGLOBIN 30.8 PG (28-34); MEAN CORPUSCULAR HGB CONC 32.9 g/dL (30-36); MEAN PLATELET VOLUME 8.5 FL (6.5-11.5); MONOCYTE# 1.1 X10e3 (0-1.0); MONOCYTE% 11.6 % (3.0-12.0); NEUTROPHIL# 6.7 X10e3 (1.5-7.1); NEUTROPHIL% 70.6 % (40-75); PLATELET COUNT 234 X10e3 (140-420); RED CELL DISTRIBUTION WIDTH 13.7 % (11.0-15.5); WHITE BLOOD COUNT 9.4 X10e3 (4.0-10.5)
[2017-04-23 11:33] LABS: DIFF IND NO
[2017-04-25 12:34] LABS: URINE APPEARANCE CLEAR; URINE BILIRUBIN NEG (NEG); URINE BLOOD NEG (NEG); URINE COLOR YELLOW; URINE GLUCOSE NEG (NEG); URINE KETONE NEG (NEG); URINE LEUKOCYTE ESTERASE NEG (NEG); URINE NITRATE NEG (NEG); URINE PROTEIN NEG (NEG); URINE SPECIFIC GRAVITY 1.004 (1.003-1.035); URINE UROBILINOGEN 0.2 MG/DL (NEG)
[2017-04-25 13:30] LABS: BILIRUBIN,TOTAL 0.8 mg/dL (0.2-2.0); CALCIUM SERUM 9.4 mg/dL (8.4-10.2); CREATININE SERUM 0.5 mg/dL (0.6-1.4); GLOM FILT RATE Estimated 141.4 mL/min (>60); POTASSIUM 5.2 mmol/L (3.5-5.1); PROTEIN TOTAL SERUM 7.1 g/dL (6.0-8.3)
[2017-04-25 13:47] LABS: AMPHETAMINE NEG (NEG); BARBITURATES NEG (NEG); BENZODIAZEPINES POS (NEG); COCAINE NEG (NEG); MARIJUANA NEG (NEG); OPIATES NEG (NEG); TRICYCLIC ANTIDEPRESSANTS NEG (NEG); U METHADONE NEG (NEG)
[2017-04-27 15:56] LABS: CHLAMYDIA TRACH Not Detected (Not Detected); N GONOR Not Detected (Not Detected)
[2017-04-28 07:59] LABS: HA AB IGM (HEPPAN) Nonreactive (()); HB CORE AB IGM (HEPPAN) Nonreactive (Nonreactive); HB S AG (HEPPAN) Nonreactive (Nonreactive); HEP C AB (HEPPAN) Reactive (Nonreactive)
== END 2017-04-26 10:05 | DRG 885 ==
LOC: P2S 13:36 → P1E 13:36 → POF 04-24 10:09 → P1E 04-24 10:16
PROVIDERS: Family Medicine; Psychiatry & Neurology Psychiatry
PROC: HZ2ZZZZ Detoxification Services for Substance Abuse Treatment (ICD-10-PCS; principal; 2017-04-22)
DX: F33.2 Major depressive disorder, recurrent severe without psychotic features (principal); R45.851 Suicidal ideations; F39 Unspecified mood [affective] disorder; F10.20 Alcohol dependence, uncomplicated; I89.0 Lymphedema, not elsewhere classified; F17.210 Nicotine dependence, cigarettes, uncomplicated; Z59.0 Homelessness; E86.0 Dehydration
CPT/HCPCS: 80053; 80074; 80307; 81003; 85025; 86592; 86695; 86696; 87491; 87522; 87591; 87806

== ENCOUNTER 2017-05-03 17:00 | Inpatient (IN) | payer OTHER ==
--- NOTE | ~2017-05-03 | PN ---
Unit #: [id number] #: [id number] Patient: WIN HIRSCH [id number] [facility] [address] [place] [address] [id number] MR#: [id number] NAME: WIN HIRSCH. ROOM: 75 Age: 36 Sex: M Admission Date: 05/03/2017 : 1980 Attending Physician: Rayshawn Kim M.D. Admitting Physician: Rayshawn Kim M.D. Primary Care Physician: Primary Care Physician Teresita NASCIMENTO PROGRESS NOTES DATE OF SERVICE: 05/05/2017 DISCUSSION Mr. Goldsmith is a 36-year-old male, seen on 05/05/2017. The patient continues to be anxious, nervous, somewhat agitated, mood was labile, still complaining of severe anxiety and reports that he needs to be on Adderall that helped and the patient has a history of methamphetamine abuse. Complete review of systems unremarkable. MENTAL STATUS EXAMINATION General appearance, the patient dressed casually in hospital attire. Mood was labile and somewhat agitated, anxious. Vital signs; temperature 98.2, pulse 91, blood pressure 117/74. Attention span and concentration, poor. Speech was rapid. Mood, labile. Denied any thoughts of harming self or others, but mood lability, paranoia. Recent and remote memory, poor. Insight and judgment, poor. DIAGNOSIS Mood disorder, not otherwise specified; amphetamine abuse disorder, moderate. ASSESSMENT AND PLAN Advised to continue with current medication and therapeutic protocol. If needed, consider further adjustment of medication. Dictated by... Woo Prieto/porter TD: 05/05/2017 23:00 JOB #: [id number] Unit #: [id number] #: [id number] Patient: WIN HIRSCH PEADEANDRE PROGRESS NOTES Page 1 of 1 X Rayshawn Kim MD PROGRESS NOTE
--- NOTE | ~2017-05-03 | DS ---
Unit #: [id number] #: [id number] Patient: WIN HIRSCH [id number] [place] [address] [id number] MR#: [id number] NAME: WIN HIRSCH. ROOM: [facility] Age: 36 Sex: M Admission Date: 05/03/2017 : 1980 Discharge Date: 05/06/2017 Attending Physician: Rayshawn Kim M.D. Primary Care Physician: Primary Care Physician No DISCHARGE SUMMARY REASON FOR ADMISSION Depression and alcohol abuse. DIAGNOSTIC STUDIES LABORATORY RESULTS: Remarkable for urine drug screen positive for amphetamine and benzodiazepine. HOSPITAL COURSE The patient was admitted to inpatient unit on 05/03/2017 and discharged on 05/06/2017. The patient was treated on the inpatient unit with group therapy, individual therapy, chemical dependency group, detox protocol, and detox monitoring. The patient responded well with the above modalities of treatment. Subsequently, the patient was discharged with a plan to follow up in outpatient program. DISCHARGE MEDICATIONS Artane 5 mg b.i.d. for EPS symptom; lithium 300 mg b.i.d. mood stabilization; Neurontin 800 mg t.i.d., the patient was given 1-week supply only for anxiety and mood stabilization; Claritin 10 mg daily for allergies; Celexa 20 mg daily for mood symptom; and Strattera 40 mg daily. DISCHARGE DIAGNOSES Psychiatric: Major depressive disorder, recurrent, severe, F33.2; history of attention-deficit hyperactivity disorder, inattentive type; amphetamine use disorder, severe, F15.20; and alcohol use disorder, severe, F10.20. Secondary diagnosis: Deferred. Medical diagnosis: None. Stressors: Psychosocial stressors. DISCHARGE INSTRUCTIONS The patient to follow up in outpatient clinic as per criminal justice social worker. CONDITION ON DISCHARGE The patient was pleasant and cooperative. Denied any psychotic symptom or any suicidal ideation. PROGNOSIS Guarded. DIET AND ACTIVITY Unit #: [id number] #: [id number] Patient: WIN HIRSCH As tolerated. Dictated by... Rayshawn Kim M.D. IKE/porter TD: 05/06/2017 19:06 JOB #: [id number] DISCHARGE SUMMARY Page 1 of 1 X Rayshawn Kim MD DISCHARGE SUMMARY
--- NOTE | ~2017-05-03 | HP ---
Unit #: [id number] #: [id number] Patient: [facility] [id number] [facility] [address] [place] [address] [id number] I MR#: [id number] NAME: WIN HIRSCH. ROOM: [facility] Age: 36 Sex: M Admission Date: 05/03/2017 : 1980 Attending Physician: Rayshawn Kim M.D. Admitting Physician: Rayshawn Kim M.D. Primary Care Physician: Primary Care Physician No HISTORY AND PHYSICAL HISTORY OF PRESENT ILLNESS Win is a 36 year old admitted to [facility] because of his continued drug use. He shoots methamphetamine and heroin. He has had other admissions to this facility for the same. PAST MEDICAL HISTORY 1. Long history of poly illicit substance abuse to include IV drugs. 2. Asthma. 3. Hepatitis C. 4. History of herpes simplex. 5. Positive RPR on 05/04/2017. FTA is pending. PAST SURGICAL HISTORY Nothing reported. ALLERGIES Sulfa. SOCIAL HISTORY Smokes one pack per day. Denies alcohol but has a long history of poly illicit substance abuse to include IV drugs. FAMILY HISTORY Medically noncontributory. REVIEW OF SYSTEMS He does not answer questions appropriately. There are no reports of nausea, vomiting or diarrhea. He has had no cough or increased temperature. CURRENT MEDICATIONS 1. Detox protocol 2. Spiriva 18 mcg q day 3. Qvar b.i.d. 4. Proventil inhaler p.r.n. 5. Celexa 20 mg q day 6. Nicotine patch 7 mg q day PHYSICAL EXAMINATION GENERAL: Alert, well-nourished, in no apparent distress. VITAL SIGNS: Blood pressure 116/70, heart rate 100, respirations 16, temperature 98.6. Unit #: [id number] #: [id number] Patient: WIN HIRSCH WEIGHT: 146 pounds. HEIGHT: 5'11". SKIN: Warm and dry without rash or lesion. HEENT: Normocephalic. TMs not viewed. Oral and nasal passages clear. Conjunctivae clear. Pupils equal, round and reactive to light and accommodation. Extraocular movements intact. NECK: Supple without lymphadenopathy or thyromegaly. HEART: Regular rate and rhythm without murmur. LUNGS: Clear. ABDOMEN: Soft, nontender. : Not done. EXTREMITIES: No evidence of cyanosis, clubbing or edema. Moves all extremities without focal deficit. NEUROLOGICAL: Unable to complete extended exam. He does move all extremities without focal deficit. Hand event marketing representative is equal and gait is normal. IMPRESSION 1. Psychiatric admission. 2. Positive RPR. FTA is pending. 3. Positive herpes simplex. 4. Hepatitis C. 5. History of illicit substance abuse to include IV drugs. RECOMMENDATIONS PSYCHIATRIC: Per psychiatrist. MEDICAL: 1. I see no contraindications to participating in facility's activities. 2. Await results of FTA. MEDICAL PROGNOSIS Good. MEDICAL CONDITION Stable. Dictated by... Anila Calderon/shani TD: 05/04/2017 22:34 JOB #: [id number] Unit #: [id number] #: [id number] Patient: WIN HIRSCH HISTORY AND PHYSICAL Page 1 of 1 X Kayla Acosta X HISTORY AND PHYSICAL
--- NOTE | ~2017-05-03 | PA ---
Unit #: [id number] #: [id number] [facility]: [facility] [id number] [facility] [address] [place] [address] [id number] I MR#: [id number] NAME: WIN HIRSCH. ROOM: P175 Age: 36 Sex: M Admission Date: 05/03/2017 : 1980 Date of Assessment: Attending Physician: Rayshawn Kim M.D. Admitting Physician: Rayshawn Kim M.D. Primary Care Physician: Primary Care Physician No PSYCHIATRIC ASSESSMENT INFORMANTS The patient's reliability, fair; chart reliability, good. CHIEF COMPLAINT Depression and substance abuse. HISTORY OF PRESENT ILLNESS Mr. Win Hirsch is a 36-year-old male, presented with depression and substance abuse. The patient reported last use of amphetamine yesterday. The patient was recently released from [facility], has a history of multiple admission. The patient reported use of meth daily 1 g IV, alcohol daily, reported last use both yesterday. The patient reported using one beer, half a gram of heroin. The patient reported that he also reported suicidal ideation with a plan to shoot himself with a gun. The patient denied any homicidal ideation. Denied any auditory or visual hallucination, but when interviewed, he was very disorganized, guarded, paranoid, agitated, hostile, and needed p.r.n. of Ativan and Thorazine. The patient reported tobacco use, age of onset 17; alcohol, age of onset 23; amphetamine, age of onset 35. The patient reported longest period of sobriety 15 months, last period of sobriety in 2014. The patient reported history of blackout, history of hepatitis, withdrawal symptom, IV drug use. Reported abdominal cramping, muscle cramping, irritability, nervousness, headache. Needing inpatient admission at this time for psychiatric stabilization. PAST PSYCHIATRIC HISTORY Remarkable for history of multiple admission, recently discharged from [facility]. [facility]. FAMILY HISTORY AND SOCIAL HISTORY The patient has a poor social support system. No history of abuse. No legal charges. MEDICAL HISTORY Remarkable for exposure to hepatitis C and lymphedema. MEDICATION HISTORY The patient is noncompliant with medication. ALLERGIES No known drug allergies. Unit #: [id number] #: [id number] Patient: WIN HIRSCH SUBSTANCE ABUSE HISTORY Please see above. REVIEW OF SYSTEMS HEENT: Eyes, clear. Ears, nose, mouth, and throat; clear. CARDIOVASCULAR: Unremarkable. RESPIRATORY: Unremarkable. GI: Unremarkable. : Unremarkable. SKIN: Unremarkable. LYMPH NODE: Unremarkable. NEUROLOGIC: Unremarkable. ENDOCRINE: Unremarkable. HEMATOLOGIC: Unremarkable. ALLERGIC/IMMUNOLOGIC: Unremarkable. MUSCULOSKELETAL: Muscle strength and tone, no atrophy or abnormal movement. Gait normal. MENTAL STATUS EXAMINATION CONSTITUTIONAL: Measurement of vital signs; temperature 97.2, pulse 126, respirations 18, blood pressure 116/70; height 5 feet 11 inches, weight 146 pounds. GENERAL APPEARANCE: The patient dressed casually in hospital attire. No facial deformity noted. MUSCULOSKELETAL: Please see above. PSYCHIATRIC EXAMINATION Description of speech; rapid in rate, circumstantial. Description of thought process, circumstantial and guarded. Description of association; guarded, paranoid. The patient delusional, paranoid, agitated, hostile, suicidal ideation. Description of the patient's judgment; concerning everyday activity, poor. Social situation, poor. Concerning psychiatric condition, poor. Complete mental status examination; oriented in time, place, and person. Recent and remote memory, fair. Attention span and concentration, fair. Language, able to name object and repeat phrases. Fund of knowledge, aware of current event and passive vocabulary intact. Mood and affect, sad and dysphoric. Insight and judgment, fair to poor. ASSETS AND LIABILITIES Assets; the patient articulate, able to take care of his ADL. Liability; history of substance abuse, depression. ADMITTING DIAGNOSES Psychiatric: Major depressive disorder, recurrent, severe, F33.2; amphetamine use disorder, severe, F15.20; alcohol use disorder, severe, F10.20. Secondary diagnosis: Deferred. Medical diagnosis: None. Stressors: Psychosocial stressors. PSYCHIATRIC PLAN AND TREATMENT GOAL 1. Advised to admit the patient on the inpatient unit. Provide safe, supportive, and structured environment. Unit #: [id number] #: [id number] Patient: WIN HIRSCH 2. Ordered labs; CBC, CMP, UA, and UDS. 3. Detox protocol, detox monitoring, and SP1 precaution. 4. Special precaution for psychosis. 5. Advised to resume home medication. If needed, consider further adjustment of medication. Advised Thorazine 50 mg q.4 p.r.n. for psychosis and Ativan 1 mg was given as a now dose. Treatment goal to attain euthymic mood, gain insight into his problem, and learn coping skills. DISCHARGE PLAN Plan to stabilize the patient and consider a 30-day rehab program for the patient. ESTIMATED LENGTH OF STAY 3 to 5 days. Dictated by... Woo Prieto/porter TD: 05/05/2017 01:57 JOB #: [id number] PSYCHIATRIC ASSESSMENT Page 1 of 1 X Rayshawn Kim MD X PSYCHIATRIC ASSESSMENT
--- NOTE | ~2017-05-03 | PN ---
Unit #: [id number] #: [id number] Patient: WIN HIRSCH [id number] [facility] [address] [place] [address] [id number] I MR#: [id number] NAME: WIN HIRSCH. ROOM: 75 Age: 36 Sex: M Admission Date: 05/03/2017 : 1980 Attending Physician: Rayshawn Kim M.D. Admitting Physician: Rayshawn Kim M.D. Primary Care Physician: Primary Care Physician Teresita HESS NOTES DATE OF SERVICE: 05/04/2017 DISCUSSION Win Hirsch is a 36-year-old male, seen on 05/04/2017. The patient interviewed, chart reviewed, and obtained information from nursing staff. The patient dressed in hospital attire. Mood was labile, agitated, guarded, paranoid, disorganized behavior and thought processes, and received Ativan and Thorazine this morning. The patient's urine drug screen was positive for benzodiazepine and amphetamine. Complete review of systems unremarkable. MENTAL STATUS EXAMINATION Vital signs; temperature 97.8, pulse 130, respirations 16, and blood pressure 139/92. Height 5 feet 11 inches and weight 146 pounds. General appearance, the patient dressed in hospital attire. Attention span and concentration, poor. Speech was rapid. Oriented in place and person. Mood and affect, labile. Thought process; circumstantial, guarded, paranoid, agitated, hostile. Recent and remote memory, poor. Insight and judgment, poor. DIAGNOSES 1. Major depressive disorder, recurrent. 2. Psychosis, not otherwise specified. 3. Amphetamine use disorder, moderate. 4. Alcohol use disorder, moderate. ASSESSMENT AND PLAN Advised to continue with current medication and therapeutic protocol. If needed, consider further adjustment of medication. Dictated by... Rayshawn Kim M.D. IKE/porter TD: 05/05/2017 02:17 JOB #: [id number] Unit #: [id number] #: [id number] Patient: WIN HIRSCH PEADEANDRE PROGRESS NOTES Page 1 of 1 X Rayshawn Kim MD PROGRESS NOTE
[2017-05-04 09:39] LABS: BASOPHIL% 0.4 % (0-2.5); EOSINOPHIL# 0.2 X10e3 (0-0.7); EOSINOPHIL% 2.2 % (0.0-7.0); HEMATOCRIT 46.1 % (38.0-50.0); HEMOGLOBIN 15.1 gm/dL (13.0-16.0); LYMPHOCYTE# 1.6 X10e3 (1.0-3.5); LYMPHOCYTE% 20.7 % (17.0-45.0); MEAN CELL VOLUME 93.2 FL (83-96); MEAN CORPUSCULAR HEMOGLOBIN 30.5 PG (28-34); MEAN CORPUSCULAR HGB CONC 32.7 g/dL (30-36); MEAN PLATELET VOLUME 7.9 FL (6.5-11.5); MONOCYTE# 0.9 X10e3 (0-1.0); MONOCYTE% 11.4 % (3.0-12.0); NEUTROPHIL# 5.1 X10e3 (1.5-7.1); NEUTROPHIL% 65.3 % (40-75); PLATELET COUNT 236 X10e3 (140-420); RED BLOOD COUNT 4.95 X10e (3.90-5.60); RED CELL DISTRIBUTION WIDTH 13.8 % (11.0-15.5); WHITE BLOOD COUNT 7.8 X10e3 (4.0-10.5)
[2017-05-04 10:00] LABS: DIFF IND NO
[2017-05-04 10:05] LABS: ALBUMIN SERUM 4.3 g/dL (3.5-5.0); BILIRUBIN,TOTAL 1.8 mg/dL (0.2-2.0); BUN/CREATININE RATIO 14.28; CALCIUM SERUM 9.5 mg/dL (8.4-10.2); CREATININE SERUM 0.7 mg/dL (0.6-1.4); GLOM FILT RATE Estimated 123.2 mL/min (>60); PROTEIN TOTAL SERUM 7.6 g/dL (6.0-8.3)
[2017-05-04 12:52] LABS: URINE APPEARANCE TURBID; URINE BLOOD NEG (NEG); URINE COLOR DK YELLOW; URINE GLUCOSE NEG (NEG); URINE KETONE 1+ (NEG); URINE LEUKOCYTE ESTERASE NEG (NEG); URINE NITRATE NEG (NEG); URINE PROTEIN TRACE (NEG); URINE SPECIFIC GRAVITY 1.022 (1.003-1.035)
[2017-05-04 13:01] LABS: URINE BILIRUBIN NEG (NEG)
[2017-05-04 13:28] LABS: AMPHETAMINE POS (NEG); BARBITURATES NEG (NEG); BENZODIAZEPINES POS (NEG); COCAINE NEG (NEG); MARIJUANA NEG (NEG); OPIATES NEG (NEG); TRICYCLIC ANTIDEPRESSANTS NEG (NEG); U METHADONE NEG (NEG)
== END 2017-05-06 11:20 | DRG 885 ==
LOC: P1E 19:01
PROVIDERS: Psychiatry & Neurology Psychiatry
PROC: HZ2ZZZZ Detoxification Services for Substance Abuse Treatment (ICD-10-PCS; principal; 2017-05-03)
DX: F33.2 Major depressive disorder, recurrent severe without psychotic features (principal); F15.20 Other stimulant dependence, uncomplicated; F10.20 Alcohol dependence, uncomplicated; J45.909 Unspecified asthma, uncomplicated; B19.20 Unspecified viral hepatitis C without hepatic coma; Z88.2 Allergy status to sulfonamides; F17.210 Nicotine dependence, cigarettes, uncomplicated; F90.0 Attention-deficit hyperactivity disorder, predominantly inattentive type
CPT/HCPCS: 80053; 80178; 80307; 81003; 85025; 86592; 86780

== ENCOUNTER 2017-05-31 22:00 | Inpatient (IN) | payer OTHER ==
--- NOTE | ~2017-05-31 | PA ---
Unit #: [id number] #: [id number] Patient: [facility]IRSCH [id number] [facility] [address] [place] [address] [id number] I MR#: [id number] NAME: WIN HIRSCH. ROOM: P210 Age: 36 Sex: M Admission Date: 06/01/2017 : 1980 Date of Assessment: 06/01/2017 Attending Physician: Roxana Morrow M.D. Admitting Physician: Roxana Morrow M.D. Primary Care Physician: [facility] PSYCHIATRIC ASSESSMENT DATE OF SERVICE 06/01/2017. IDENTIFYING DATA Mr. Hirsch is a 36-year-old single white male, who is a resident of [place], [place], and is known to us from previous encounter, and was self-referred to the hospital on a voluntary basis. CHIEF COMPLAINT "I don't want to live anymore." HISTORY OF PRESENT ILLNESS Mr. Hirsch is a 36-year-old white male with history of mood disorder, who was self-referred to the hospital. Upon presentation, stated that he has been having increasing depression and suicidal thoughts and that he just broke up with his boyfriend of a year and that since his boyfriend left, he has been feeling depressed and having constant thoughts of killing himself and he has been trying to talk to friends, but he does not seem to help and that last night he was talking to a friend about hanging himself and a friend took his gun and dropped him off here in the hospital. The patient reports that he has been taking his depression medications as prescribed and feels that it is not working and does report increasing depression, anxiety, feelings of hopelessness and helplessness, and suicidal ideations with intent and plan and as such, recommendation for inpatient level of care for safety and stabilization was made. SUBSTANCE ABUSE HISTORY The patient reports history of alcohol, cocaine, and opioid abuse in the past, but denies any current ongoing substance abuse issues. PAST PSYCHIATRIC HISTORY The patient has had history of inpatient psychiatric hospitalization at [facility] and review of the medical records indicate that currently he is on Risperdal and Celexa, but does not feel the medications are effectively controlling his depression. PAST MEDICAL HISTORY No acute or chronic medical illnesses. ALLERGIES Sulfa and Bactrim. PERSONAL AND SOCIAL HISTORY Unit #: [id number] #: [id number] Patient: WIN HIRSCH A 36-year-old white male, who reports that he is single, unemployed, and lives by himself and has poor social support system. MENTAL STATUS EXAMINATION Young white male who was casually dressed with fair personal hygiene, and appears to be in no acute distress or discomfort. He was awake and alert on interaction with intact orientation. His mood was anxious and depressed with a congruent affect. His speech was slow and restricted in content. His thought processes were disorganized with some looseness of associations and flight of ideas and suicidal ideations. His insight and judgment remain significantly impaired. DIAGNOSTIC IMPRESSION Psychiatric: Major depressive disorder, recurrent, moderate, without psychotic features. Medical: None. Stressors: Moderate psychosocial stressors. TREATMENT PLAN 1. The patient has presented with history of mood disorder, and has been decompensating and will need inpatient hospitalization for safety and stabilization. We will start him back on his home medications. We will adjust the medications and monitor response. 2. Supportive therapy was provided to the patient. 3. Safe, structured, and nourishing environment will be provided. ESTIMATED LENGTH OF STAY 4 to 5 days. ABILITY TO HELP SELF Limited. WILLINGNESS TO HELP SELF The patient appears to be willing to help self. STRENGTHS 1. Communicative. 2. Cooperative. PROBLEMS 1. Chronic dysphoric symptoms. 2. Poor social support system. DISCHARGE CRITERIA This will be contingent upon the patient's ability to show resolution of his depression and anxiety and his ability to stay safe to himself, particularly after discharge from the hospital. Dictated by... Woo Vang/porter TD: 06/01/2017 07:13 JOB #: [id number] Unit #: [id number] #: [id number] Patient: WIN HIRSCH PSYCHIATRIC ASSESSMENT Page 1 of 1 X Roxana Morrow MD PSYCHIATRIC ASSESSMENT
--- NOTE | ~2017-05-31 | PN ---
Unit #: [id number] #: [id number] Patient: WIN HIRSCH [id number] [facility] [address] [place] [address] [id number] MR#: [id number] NAME: WIN HIRSCH. ROOM: P207 Age: 36 Sex: M Admission Date: 06/01/2017 : 1980 Attending Physician: Roxana Morrow M.D. Admitting Physician: Roxana Morrow M.D. [facility] PROGRESS NOTES DATE 06/03/2017 DISCUSSION Mr. Hirsch is a 36-year-old white male who was seen today and chart was reviewed and case was discussed with the staff. He has been doing fairly well and has been showing improvement in his mood and denies any current suicidal thoughts. He has been taking medications and tolerating them fairly well with no reported side effects. MENTAL STATUS EXAMINATION Young white male who was casually dressed with fair personal hygiene and appears to be in no acute distress or discomfort. He was awake and alert on interaction with intact orientation. His mood was anxious with congruent affect. He denies any suicidal or homicidal ideations. His insight and judgement remains slightly impaired. TREATMENT PLAN 1. Will continue on his current medications and treatment protocol. Will monitor his response and make further adjustments as needed. 2. Will continue to follow up. Dictated by... Woo Vang/kerline TD: 06/03/2017 17:36 JOB #: [id number] Unit #: [id number] #: [id number] Patient: WIN HIRSCH [facility] PROGRESS NOTES Page 1 of 1 X Roxana Morrow MD PROGRESS NOTE
--- NOTE | ~2017-05-31 | DS ---
Unit #: [id number] #: [id number] Patient: WIN HIRSCH [id number] [facility] [address] [place] [address] [id number] MR#: [id number] NAME: WIN HIRSCH. ROOM: P203 Age: 36 Sex: M Admission Date: 06/01/2017 : 1980 Discharge Date: 06/04/2017 Attending Physician: Roxana Morrow M.D. Primary Care Physician: [facility] DISCHARGE SUMMARY IDENTIFYING DATA Mr. Hirsch is a 36-year-old single white male who is a resident of [facility] who is known to us from previous encounter and was self-referred to the hospital on voluntary basis. CHIEF COMPLAINT "I don't want to live anymore" DISCHARGE DIAGNOSES PSYCHIATIC Major depressive disorder recurrent, moderate, without psychotic features. MEDICAL None. STRESSORS Mild psychosocial stressors. HISTORY OF PRESENT ILLNESS Please see initial psychiatric evaluation for details. PAST PSYCHIATRIC HISTORY Please see initial psychiatric evaluation for details. PAST MEDICAL HISTORY Please see initial psychiatric evaluation for details. HOSPITAL COURSE The patient was admitted to the adult psychiatric unit at [facility] and was oriented to the hospital environment. Routine p.r.n. medications were initiated, and he was started back on Effexor and BuSpar to help with his depression and anxiety and was closely monitored. He was taking the medication regularly and was tolerating them fairly well and was able to show a decent and therapeutic response with improvement in depression and anxiety and was seen and was denying suicidal ideations, intent or plan. He was not seem to be in any (1) to self or anyone else and it was decided the patient would be discharged home. Will continue treatment on an outpatient basis. DISCHARGE MEDICATIONS Effexor XR 75 mg a day for depression Unit #: [id number] #: [id number] Patient: WIN HIRSCH CONDITION AT DISCHARGE Stable. PROGNOSIS Fair. Dictated by... Woo Vang/shani TD: 06/07/2017 20:47 JOB #: [id number] DISCHARGE SUMMARY Page 1 of 1 X Roxana Morrow MD DISCHARGE SUMMARY
--- NOTE | ~2017-05-31 | HP ---
Unit #: [id number] #: [id number] Patient: WIN HIRSCH [id number] [place] [address] [id number] I MR#: [id number] NAME: WIN HIRSCH. ROOM: P210 Age: 36 Sex: M Admission Date: 06/01/2017 : 1980 Attending Physician: Roxana Morrow M.D. Admitting Physician: Roxana Morrow M.D. Primary Care Physician: Mariel Arrington [facility] HISTORY AND PHYSICAL HISTORY OF PRESENT ILLNESS Win is a 36 year old admitted to [address] [place] [address] because of his continued drug use. PAST MEDICAL HISTORY 1. Long history of illicit substance abuse to include IV drugs. 2. Hepatitis C. 3. Asthma. 4. History of herpes simplex. 5. Positive RPR on 05/04/2017. FTA was negative. PAST SURGICAL HISTORY Nothing reported. ALLERGIES Sulfa. SOCIAL HISTORY Smokes 1 pack per day. Denies alcohol but has a long history of polysubstance abuse to include IV drugs. FAMILY HISTORY Medically noncontributory. REVIEW OF SYSTEMS He does not answer all questions appropriately. There are no reports of nausea, vomiting or diarrhea. He has had no cough or increased temperature. CURRENT MEDICATIONS 1. Effexor XR 75 mg daily. 2. BuSpar 10 mg b.i.d. 3. Nicotine patch 14 mg daily. 4. Milk of Magnesia p.r.n. 5. Maalox p.r.n. 6. Tylenol p.r.n. PHYSICAL EXAMINATION GENERAL: Alert, obese, no apparent distress. VITAL SIGNS: Blood pressure 110/56, heart rate 80, respirations 16, temperature 98.6. WEIGHT: 200. HEIGHT: 5 feet 11 inches. Unit #: [id number] #: [id number] Patient: WIN HIRSCH SKIN: Warm and dry without rash or lesion. HEENT: Normocephalic. TMs not viewed. Oral and nasal passages clear. Conjunctivae clear. PERRLA. EOMs intact. NECK: Supple without lymphadenopathy or thyromegaly. HEART: Regular rate and rhythm without murmur. LUNGS: Clear. ABDOMEN: Soft, nontender. : Not done. EXTREMITIES: No evidence of cyanosis, clubbing or edema. Moves all without focal deficit. NEUROLOGICAL: Grossly within normal limits. Cranial Nerves: II: Visual jones are intact. III, IV AND : Extraocular movements are intact. Pupils are equal, round and reactive to light. V: Facial sensation is grossly normal. VII: Facial movements and expression are normal. VIII: Auditory acuity grossly intact. IX, X: Uvula is midline. Phonation is normal. XI: Patient shrugs shoulders and turns head normally. XII: Tongue protrudes in the midline. Sensory and Motor Function: Sensory and motor sensation is grossly normal. Motor: moves all extremities well. Coordination: Gait is normal. Deep Tendon Reflexes: Intact. IMPRESSION Psychiatric admission. RECOMMENDATIONS PSYCHIATRIC: Per psychiatrist. MEDICAL: See no contraindication to participate in facility's activities. MEDICAL PROGNOSIS Good. MEDICAL CONDITION Stable. Dictated by... Kayla Acosta P.A.-C. for Woo Lama/kerline TD: 06/01/2017 18:03 JOB #: [id number] HISTORY AND PHYSICAL Page 1 of 1 X Kayla Acosta HISTORY AND PHYSICAL
--- NOTE | ~2017-05-31 | PN ---
Unit #: [id number] #: [id number] Patient: WIN HIRSCH [id number] [facility] [address] [place] [address] [id number] I MR#: [id number] NAME: WIN HIRSCH. ROOM: P210 Age: 36 Sex: M Admission Date: 06/01/2017 : 1980 Attending Physician: Roxana Morrow M.D. Admitting Physician: Roxana Morrow M.D. [facility] PROGRESS NOTES DATE June 02, 2017 DISCUSSION Mr. Hirsch is a 36-year-old white male, who was seen today and chart was reviewed and the case was discussed with the staff. He has been anxious, withdrawn, and seclusive to himself. Meanwhile, he has been cooperative with the treatment recommendations and he has been taking the medications and tolerating them fairly well with no reported side effects. MENTAL STATUS EXAMINATION Young white male, who was casually dressed with fair personal hygiene and appears to be in no acute distress or discomfort. He was awake and alert on interaction with intact orientation. His mood is anxious with a congruent affect. He denies any suicidal or homicidal ideations. His insight and judgment remain slightly impaired. TREATMENT PLAN 1. We will continue him on his current medications and treatment protocol, and will monitor his response to the medications, and make further adjustments as needed. 2. We will continue to followup. Dictated by... Woo Vang/gray TD: 06/02/2017 12:38 JOB #: [id number] Unit #: [id number] #: [id number] Patient: WIN HIRSCH [facility] PROGRESS NOTES Page 1 of 1 X Roxana Morrow MD PROGRESS NOTE
--- NOTE | ~2017-05-31 | CO ---
Unit #: [id number] #: [id number] Patient: WIN HIRSCH [id number] [place] [address] [id number] I MR#: [id number] NAME: WIN HIRSCH. ROOM: P203 Age: 36 Sex: M Admission Date: 06/01/2017 : 1980 Attending Physician: Roxana Morrow M.D. Primary Care Physician: [facility] Consultation Date: 06/02/2017 CONSULTATION REPORT JEAN-PIERRE Goldsmith is a 36-year-old with history of seizure disorder. He is noncompliant with any kind of seizure medication for many months. In fact, he cannot even recall the name of the last medication that he took for his seizures. He recalls his last seizure was many weeks ago. We will start him on Keppra 500 mg one p.o. b.i.d. He knows to follow up with his PCP. Dictated by... Kayla Acosta P.A.-C. for Woo Lama/porter TD: 06/09/2017 02:13 JOB #: [id number] CONSULTATION REPORT Page 1 of 1 X Kayla Acosta CONSULTATION REPORT
[2017-06-01 09:48] LABS: BASOPHIL# 0.1 X10e3 (0-0.3); BASOPHIL% 0.8 % (0-2.5); EOSINOPHIL# 0.3 X10e3 (0-0.7); EOSINOPHIL% 4.6 % (0.0-7.0); HEMATOCRIT 44.7 % (38.0-50.0); HEMOGLOBIN 14.7 gm/dL (13.0-16.0); LYMPHOCYTE# 1.8 X10e3 (1.0-3.5); LYMPHOCYTE% 28.1 % (17.0-45.0); MEAN CORPUSCULAR HEMOGLOBIN 30.5 PG (28-34); MEAN CORPUSCULAR HGB CONC 32.7 g/dL (30-36); MEAN PLATELET VOLUME 7.5 FL (6.5-11.5); MONOCYTE# 0.8 X10e3 (0-1.0); MONOCYTE% 12.1 % (3.0-12.0); NEUTROPHIL# 3.5 X10e3 (1.5-7.1); NEUTROPHIL% 54.4 % (40-75); PLATELET COUNT 178 X10e3 (140-420); RED BLOOD COUNT 4.81 X10e (3.90-5.60); RED CELL DISTRIBUTION WIDTH 14.4 % (11.0-15.5); WHITE BLOOD COUNT 6.5 X10e3 (4.0-10.5)
[2017-06-01 09:54] LABS: DIFF IND NO
[2017-06-01 10:02] LABS: URINE APPEARANCE CLEAR; URINE BILIRUBIN NEG (NEG); URINE BLOOD NEG (NEG); URINE COLOR YELLOW; URINE GLUCOSE NEG (NEG); URINE KETONE NEG (NEG); URINE LEUKOCYTE ESTERASE NEG (NEG); URINE NITRATE NEG (NEG); URINE PH 6.5 (5-8); URINE PROTEIN NEG (NEG); URINE SPECIFIC GRAVITY 1.012 (1.003-1.035)
[2017-06-01 10:07] LABS: ALBUMIN SERUM 3.6 g/dL (3.5-5.0); BILIRUBIN,TOTAL 0.5 mg/dL (0.2-2.0); BUN/CREATININE RATIO 17.14; CALCIUM SERUM 8.8 mg/dL (8.4-10.2); CREATININE SERUM 0.7 mg/dL (0.6-1.4); GLOM FILT RATE Estimated 123.2 mL/min (>60); POTASSIUM 4.2 mmol/L (3.5-5.1); PROTEIN TOTAL SERUM 6.2 g/dL (6.0-8.3)
[2017-06-01 10:39] LABS: AMPHETAMINE NEG (NEG); BARBITURATES NEG (NEG); BENZODIAZEPINES NEG (NEG); COCAINE NEG (NEG); MARIJUANA NEG (NEG); OPIATES NEG (NEG); TRICYCLIC ANTIDEPRESSANTS NEG (NEG); U METHADONE NEG (NEG)
== END 2017-06-04 11:10 | disposition home or self-care (01) | DRG 885 ==
LOC: P2S 06-01 00:12
PROVIDERS: Psychiatry & Neurology Psychiatry
DX: F33.1 Major depressive disorder, recurrent, moderate (principal); R45.851 Suicidal ideations; B19.20 Unspecified viral hepatitis C without hepatic coma; J45.909 Unspecified asthma, uncomplicated; F17.210 Nicotine dependence, cigarettes, uncomplicated; Z88.2 Allergy status to sulfonamides; F19.10 Other psychoactive substance abuse, uncomplicated; F41.9 Anxiety disorder, unspecified
CPT/HCPCS: 80053; 80307; 81003; 85025

== ENCOUNTER 2017-08-08 16:53 | Inpatient (IN) | payer OTHER ==
[~2017-08-08] VITALS: Ht 180.3 cm; Wt 95.7 kg
--- NOTE | ~2017-08-08 | PN ---
Unit #: [id number] #: [id number] Patient: WIN HIRSCH [id number] [facility] [address] [place] [address] [id number] I MR#: [id number] NAME: WIN HIRSCH. ROOM: [facility] [place]Note 2] Age: 37 Sex: M Admission Date: 08/08/2017 : 1980 Attending Physician: Rayshawn Kim M.D. Admitting Physician: Rayshawn Kim M.D. Primary Care Physician: [facility] PROGRESS NOTES DATE OF SERVICE: 08/10/2017 DISCUSSION Win Hirsch is a 37-year-old male, seen on 08/10/2017. The patient interviewed, chart reviewed, and obtained information from nursing staff. The patient is withdrawn, isolative, flat affect, sad and dysphoric mood, and compliant with medication. REVIEW OF SYSTEMS Complete review of systems unremarkable. MENTAL STATUS EXAMINATION General appearance, the patient dressed casually. Attention span and concentration, fair. Oriented in time, place, and person. Mood and affect, labile. Speech, monotone. Thought process, concrete. The patient denied any thoughts of harming self or others, but passive SI. Recent and remote memory, poor. Insight and judgment, poor. DIAGNOSES Major depressive disorder, recurrent, severe, F33.2; amphetamine use disorder, severe, F15.20; opioid use disorder, severe, and F11.20. ASSESSMENT AND PLAN Advised to continue with current medication and therapeutic protocol. If needed, consider further adjustment of medication. Dictated by... Woo Prieto/porter TD: 08/10/2017 18:45 JOB #: [id number] Unit #: [id number] #: [id number] Patient: WIN HIRSCH [facility] PROGRESS NOTES Page 1 of 1 X Rayshawn Kim MD PROGRESS NOTE
--- NOTE | ~2017-08-08 | DS ---
Unit #: [id number] #: [id number] Patient: WIN HIRSCH [id number] [facility] [address] [place] [address] [id number] I MR#: [id number] NAME: WIN HIRSCH. ROOM: [facility] Age: 37 Sex: M Admission Date: 08/08/2017 : 1980 Discharge Date: 08/12/2017 Attending Physician: Rayshawn Kim M.D. Primary Care Physician: [facility] DISCHARGE SUMMARY REASON FOR ADMISSION Depression and substance abuse. DIAGNOSTIC STUDIES LABORATORY RESULTS: Urine drug screen, negative. HOSPITAL COURSE The patient was admitted to inpatient unit on 08/08/2017 and discharged on 08/12/2017. The patient was treated with group therapy, individual therapy, medication management, chemical dependency group. The patient was responsive to treatment, showed improvement. Subsequently, the patient was discharged with a plan to follow up in outpatient program. DISCHARGE MEDICATIONS Keflex 500 mg t.i.d. for upper respiratory tract infection, Risperdal 1 mg b.i.d. for mood stabilization, BuSpar 10 mg b.i.d. for anxiety, lithium carbonate 300 mg b.i.d. for mood stabilization, Effexor XR 75 mg at bedtime for depression, Celexa 20 mg daily for depression, Artane 2 mg b.i.d. for EPS symptom, and Saphris 5 mg at bedtime for mood stabilization. DISCHARGE DIAGNOSES Psychiatric: Bipolar mood disorder, recurrent, severe, F31.9; amphetamine use disorder, severe, F15.20; opioid use disorder, severe, F11.20. Secondary diagnosis: Deferred. Medical diagnosis: History of hepatitis C, asthma, history of herpes simplex, positive RPR on 05/04/2017, FTA negative. Stressors: Psychosocial stressors. DISCHARGE INSTRUCTIONS The patient to follow up in outpatient clinic as per social sciences chair. CONDITION ON DISCHARGE The patient was pleasant and cooperative. Denied any psychotic symptom or any suicidal ideation. PROGNOSIS Guarded. DIET AND ACTIVITY As tolerated. Unit #: [id number] #: [id number] Patient: WIN HIRSCH Dictated by... Woo Prieto/porter TD: 08/12/2017 19:48 JOB #: [id number] DISCHARGE SUMMARY Page 1 of 1 X Rayshawn Kim MD DISCHARGE SUMMARY
--- NOTE | ~2017-08-08 | PN ---
Unit #: [id number] #: [id number] Patient: WIN HIRSCH [id number] [facility] [address] [place] [address] [id number] I MR#: [id number] NAME: WIN HIRSCH. ROOM: [facility] Age: 37 Sex: M Admission Date: 08/08/2017 : 1980 Attending Physician: Rayshawn Kim M.D. Admitting Physician: Rayshawn Kim M.D. Primary Care Phys[facility] NOT[facility] DATE OF SERVICE: 08/11/2017 DISCUSSION Mr. Win Hirsch is a 37-year-old male, seen on 08/11/2017. The patient interviewed, chart reviewed, and obtained information from nursing staff. The patient compliant and cooperative. Mood is sad and dysphoric. Denied any thoughts of harming self or others, but isolative. The patient's vital signs; temperature 97.9, heart rate 63, and blood pressure 129/71. REVIEW OF SYSTEMS Complete review of systems unremarkable. MENTAL STATUS EXAMINATION General appearance, the patient dressed casually. Attention span and concentration, fair. Oriented in time, place, and person. Mood and affect, labile. Speech, monotone. Thought process, concrete. The patient denied any thoughts of harming self or others, but withdrawn and isolative. Recent and remote memory, poor. Insight and judgment, poor. DIAGNOSES Major depressive disorder, recurrent, severe; amphetamine use disorder, severe; and opioid use disorder, severe. ASSESSMENT AND PLAN Advised to continue with current medication and therapeutic protocol. If needed, consider further adjustment of medication. Dictated by... Woo Prieto/porter TD: 08/11/2017 17:46 JOB #: [id number] Unit #: [id number] #: [id number] Patient: WIN HIRSCH PROGRESS NOTES Page 1 of 1 X Rayshawn Kim MD PROGRESS NOTE
--- NOTE | ~2017-08-08 | HP ---
Unit #: [id number] #: [id number] Patient: WIN HIRSCH [id number] [facility] [address] [place] [address] [id number] I MR#: [id number] NAME: WIN HIRSCH. ROOM: P211 Age: 37 Sex: M Admission Date: 08/08/2017 : 1980 Attending Physician: Rayshawn Kim M.D. Admitting Physician: Rayshawn Kim M.D. Primary Care Physician: Mariel Arrington [facility] HISTORY AND PHYSICAL HISTORY OF PRESENT ILLNESS Win is a 37 year old admitted to [address] [place] [address] because of his continued drug use. He has had numerous admissions to this facility for the same. PAST MEDICAL HISTORY 1. Long history of illicit substance abuse to include IV drugs. 2. Hepatitis C. 3. Asthma. 4. History of herpes simplex. 5. Positive RPR on 05/04/2017. FTA was negative. PAST SURGICAL HISTORY Nothing reported ALLERGIES Sulfa. SOCIAL HISTORY Smokes one pack per day. Denies alcohol but has a long history of poly illicit substance abuse to include IV drugs. FAMILY HISTORY Medically noncontributory. REVIEW OF SYSTEMS CONSTITUTIONAL: No fever or chills. HEENT: He does report significant head congestion over the past three days productive of thick yellow sputum. He denies any increased temperatures. CARDIOVASCULAR: Denies chest pain, irregular heart rhythm or palpitations. CHEST: Denies shortness of breath or cough. No hemoptysis. GASTROINTESTINAL: Denies nausea, vomiting, diarrhea or chronic constipation. ENDOCRINE: Denies history of increased thirst or urination. No recent significant weight loss or gain. GENITOURINARY: Denies dysuria, frequency, or hematuria. SKIN: Denies any rashes. HEMATOLOGIC: Denies history of increased bleeding or bruising. MUSCULOSKELETAL: Denies any hot, swollen joints. No generalized muscle pain. NEUROLOGIC: Denies problems with vision or speech. No frequent, severe headaches. No numbness, tingling or weakness in any extremities. Denies Unit #: [id number] #: [id number] Patient: WIN HIRSCH loss of bladder or bowel control. CURRENT MEDICATIONS 1. Detox protocol 2. Citalopram 10 mg q day 3. Saphris 5 mg q day 4. Effexor XR 75 mg q day 5. Artane 2 mg b.i.d. 6. [place] 300 mg b.i.d. 7. BuSpar 10 mg b.i.d. 8. Risperdal 1 mg b.i.d. PHYSICAL EXAMINATION GENERAL: Alert, well-nourished, in no apparent distress. VITAL SIGNS: Blood pressure 132/4, heart rate 80, respirations 16, temperature 98.6. WEIGHT: 211. HEIGHT: 5 foot 11 inches. SKIN: Warm and dry without rash or lesion. HEENT: Normocephalic. TMs not viewed. Throat with moderate amounts of thick yellow postnasal drainage. Nasal passages clear. Oral and nasal passages clear. Conjunctivae clear. Pupils equal, round and reactive to light and accommodation. Extraocular movements intact. NECK: Supple without lymphadenopathy or thyromegaly. HEART: Regular rate and rhythm without murmur. LUNGS: Clear. ABDOMEN: Soft, nontender. : Not done. EXTREMITIES: No evidence of cyanosis, clubbing or edema. Moves all extremities without focal deficit. NEUROLOGICAL: Grossly within normal limits. Cranial Nerves: II: Visual jones are intact. III, IV AND : Extraocular movements are intact. Pupils are equal, round and reactive to light. V: Facial sensation is grossly normal. VII: Facial movements and expression are normal. VIII: Auditory acuity grossly intact. IX, X: Uvula is midline. Phonation is normal. XI: Patient shrugs shoulders and turns head normally. XII: Tongue protrudes in the midline. Sensory and Motor Function: Sensory and motor sensation is grossly normal. Motor: moves all extremities well. Coordination: Gait is normal. Deep Tendon Reflexes: Intact. IMPRESSION 1. Psychiatric admission. 2. Long history of illicit substance abuse. 3. Sinusitis. RECOMMENDATIONS PSYCHIATRIC: Per psychiatrist. MEDICAL: 1. I see no contraindications to participating in facility's activities. 2. Detox per protocol. 3. Start Keflex 500 mg 1 p.o. t.i.d. times seven days and Tessalon [place] 200 mg one t.i.d. times three days. MEDICAL PROGNOSIS Good. Unit #: [id number] #: [id number] Patient: WIN HIRSCH MEDICAL CONDITION Stable. Dictated by... Kayla Acosta P.A.-C. for Woo Lama/shani TD: 08/09/2017 19:16 JOB #: [id number] HISTORY AND PHYSICAL Page 1 of 1 X Kayla Acosta HISTORY AND PHYSICAL
--- NOTE | ~2017-08-08 | PN ---
Unit #: [id number] #: [id number] Patient: WIN HIRSCH [id number] [facility] [address] [place] [address] [id number] I MR#: [id number] NAME: WIN HIRSCH. ROOM: [facility] Age: 37 Sex: M Admission Date: 08/08/2017 : 1980 Attending Physician: Rayshawn Kim M.D. Admitting Physician: Rayshawn Kim M.D. Primary Care Physician: Mariel [facility] PROGRESS NOTES DATE 08/09/2017 DISCUSSION Mr. Win Hirsch is a 37-year-old male. The patient interviewed, chart reviewed, and obtained information from the nursing staff. The patient tolerating medication fairly well, pleasant, cooperative, mood sad, dysphoric, withdrawn, isolative, guarded. Vital signs, 97.9, 79, 133/75. REVIEW OF SYSTEMS Complete review of systems unremarkable. MENTAL STATUS EXAMINATION General appearance: Patient dressed casually. Attention span and concentration, fair. Oriented in time, place, and person. Mood and affect, sad and dysphoric. Speech, monotone. Thought process, concrete. The patient denied any thoughts of harming self or others but having passive SI. Recent and remote memory, poor. Insight and judgment, poor. DIAGNOSES 1. Major depressive disorder, recurrent, severe, F33.2. 2. Amphetamine abuse disorder, severe, F15.20. 3. Opiate use disorder, severe, F11.20. ASSESSMENT/PLAN Advised to continue with current medications and therapeutic protocol, if needed consider further adjustment of medication. Dictated by... Woo Prieto/gray TD: 08/10/2017 11:43 JOB #: [id number] Unit #: [id number] #: [id number] Patient: WIN HIRSCH [facility] PROGRESS NOTES Page 1 of 1 X Rayshawn Kim MD PROGRESS NOTE
--- NOTE | ~2017-08-08 | PA ---
Unit #: [id number] #: [id number] Patient: WIN LARA [id number] [facility] [address] [place] [address] [id number] I MR#: [id number] NAME: WIN LARA. ROOM: [facility] Age: 37 Sex: M Admission Date: 08/08/2017 : 1980 Date of Assessment: 08/08/2017 Attending Physician: Rayshawn Kim M.D. Admitting Physician: Rayshawn Kim M.D. Primary Care Physician: Mariel Arrington [facility] PSYCHIATRIC ASSESSMENT INFORMANTS The patient reliability, fair informant and chart reliability, good. CHIEF COMPLAINT Depression, suicidal ideation, and substance abuse. HISTORY OF PRESENT ILLNESS Mr. Win Lara is a 37-year-old white male, presented with the above-mentioned complaint. The patient presented with suicidal ideation and substance abuse. The patient reported current suicidal ideation with a plan to shoot himself. The patient reported feeling of hopelessness and worthlessness, relapsed yesterday, kicked off the [facility] 2 days ago for using. The patient reports relapsed on heroin, opioids, alcohol, and methamphetamine. The patient reported drinking half a gallon of vodka yesterday. The patient reported injecting 1 g of heroin and injecting a dime bag of meth. The patient reported using 1 g of heroin today at noon. The patient has limited support, homeless, unemployed, hopelessness, worthlessness, and suicidal ideation. Needing inpatient admission at this time for psychiatric stabilization. PAST PSYCHIATRIC HISTORY Remarkable for history of previous admission on 06/01/2017 and before that 05/03/2017. FAMILY HISTORY AND SOCIAL HISTORY The patient has a poor support system. No history of abuse. No legal charges. MEDICAL HISTORY Remarkable for history of hepatitis C and lymphedema. MEDICATION HISTORY The patient is currently on Celexa 10 mg daily, Saphris 5 mg at bedtime, Effexor XR 75 mg at bedtime, Artane 2 mg b.i.d., lithium carbonate 300 mg b.i.d., BuSpar 10 mg b.i.d., and Risperdal 1 mg b.i.d. ALLERGIES No known drug allergies. SUBSTANCE ABUSE HISTORY Please see above. REVIEW OF SYSTEMS Unit #: [id number] #: [id number] Patient: WIN LARA HEENT: Eyes, clear. Ears, nose, mouth, and throat; clear. CARDIOVASCULAR: Unremarkable. RESPIRATORY: Unremarkable. GI: Unremarkable. : Unremarkable. SKIN: Unremarkable. LYMPH NODE: Unremarkable. NEUROLOGIC: Unremarkable. ENDOCRINE: Unremarkable. HEMATOLOGIC: Unremarkable. ALLERGIC/IMMUNOLOGIC: Unremarkable. MUSCULOSKELETAL: Muscle strength and tone, no atrophy or abnormal movement. Gait normal. MENTAL STATUS EXAMINATION CONSTITUTIONAL: Measurement of vital signs; temperature 97.9, heart rate 79, respiratory rate 16, and blood pressure 133/75. Height 5 feet 11 inches. Weight 211 pounds. GENERAL APPEARANCE: The patient dressed casually. The patient did not show any facial deformity. MUSCULOSKELETAL: Muscle strength and tone, no atrophy or abnormal movement. Gait normal. PSYCHIATRIC EXAMINATION Description of speech; regular rate, normal volume, normal articulation, and coherent. Description of thought process, goal directed. Description of association, intact. Description of abnormal psychotic thinking; the patient denied any hallucination or delusions, but mood lability. Description of the patient's judgment: Concerning everyday activity, poor. Social situation, poor. Concerning psychiatric condition, poor. The patient reported having suicidal ideation. Complete mental status examination; oriented in time, place, and person. Recent and remote memory, fair. Attention span and concentration, fair. Language, able to name object and repeat phrases. Fund of knowledge, aware of current event and passive vocabulary intact. Mood and affect, sad and dysphoric. Insight and judgment, fair to poor. ASSETS AND LIABILITIES Assets, the patient is articulate and able to take care of his ADL. Liability; history of depression, suicidal ideation, and substance abuse. ADMITTING DIAGNOSES Psychiatric: Major depressive disorder, recurrent, severe, F33.2; amphetamine use disorder, severe, F15.20; and opioid use disorder, severe, F11.20. Secondary diagnosis: Deferred. Medical diagnoses: History of hepatitis C; asthma; and history of herpes simplex, positive RPR on 05/04/2017, FTA negative. Stressors: Psychosocial stressors. PSYCHIATRIC PLAN AND TREATMENT GOAL AND DISCHARGE PLAN 1. Advised to admit the patient on the inpatient unit. Provide safe, supportive, and structured environment. 2. Ordered labs; CBC, CMP, UA, and UDS. Unit #: [id number] #: [id number] Patient: WIN LARA 3. Advised to resume home medication. If needed, consider further adjustment of medication and also get lithium level. The patient to attend all the programing, group therapy, individual therapy, and chemical dependency group. Treatment goal to attain euthymic mood, gain insight into his problem, and learn coping skills. DISCHARGE PLAN Plan to stabilize the patient and consider followup in outpatient program. ESTIMATED LENGTH OF STAY 5 to 7 days. Dictated by... Woo Prieto/porter TD: 08/09/2017 16:44 JOB #: [id number] PSYCHIATRIC ASSESSMENT Page 1 of 1 X Rayshawn Kim MD X PSYCHIATRIC ASSESSMENT
[2017-08-09 09:41] LABS: BASOPHIL% 0.6 % (0-2.5); EOSINOPHIL# 0.3 X10e3 (0-0.7); EOSINOPHIL% 5.7 % (0.0-7.0); HEMATOCRIT 45.1 % (38.0-50.0); HEMOGLOBIN 15.3 gm/dL (13.0-16.0); LYMPHOCYTE# 1.6 X10e3 (1.0-3.5); LYMPHOCYTE% 29.1 % (17.0-45.0); MEAN CELL VOLUME 91.8 FL (83-96); MEAN CORPUSCULAR HEMOGLOBIN 31.1 PG (28-34); MEAN CORPUSCULAR HGB CONC 33.9 g/dL (30-36); MEAN PLATELET VOLUME 7.8 FL (6.5-11.5); MONOCYTE# 0.7 X10e3 (0-1.0); MONOCYTE% 13.1 % (3.0-12.0); NEUTROPHIL# 2.9 X10e3 (1.5-7.1); NEUTROPHIL% 51.5 % (40-75); PLATELET COUNT 181 X10e3 (140-420); RED BLOOD COUNT 4.92 X10e (3.90-5.60); RED CELL DISTRIBUTION WIDTH 13.6 % (11.0-15.5); WHITE BLOOD COUNT 5.6 X10e3 (4.0-10.5)
[2017-08-09 09:51] LABS: DIFF IND NO
[2017-08-09 10:35] LABS: ALBUMIN SERUM 3.9 g/dL (3.5-5.0); BILIRUBIN,TOTAL 1.5 mg/dL (0.2-2.0); BUN/CREATININE RATIO 12.5; CREATININE SERUM 0.8 mg/dL (0.6-1.4); GLOM FILT RATE Estimated 115.8 mL/min (>60); POTASSIUM 4.3 mmol/L (3.5-5.1); PROTEIN TOTAL SERUM 6.4 g/dL (6.0-8.3)
== END 2017-08-12 09:45 | DRG 885 ==
LOC: P2S 20:02
PROVIDERS: Psychiatry & Neurology Psychiatry
PROC: HZ2ZZZZ Detoxification Services for Substance Abuse Treatment (ICD-10-PCS; principal; 2017-08-09)
DX: F33.2 Major depressive disorder, recurrent severe without psychotic features (principal); F11.20 Opioid dependence, uncomplicated; F15.20 Other stimulant dependence, uncomplicated; B19.20 Unspecified viral hepatitis C without hepatic coma; J45.909 Unspecified asthma, uncomplicated; Z88.2 Allergy status to sulfonamides; F17.210 Nicotine dependence, cigarettes, uncomplicated
CPT/HCPCS: 80053; 80178; 85025; 86592